=== PATIENT | male | born 1995 | race Caucasian/White ===

== ENCOUNTER 2023-01-08 09:03 | Outpatient (AMB) | payer BC, SELFPAY ==
--- NOTE | 2023-01-08 09:05 | A.OFFPC_ITS ---
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 Required: No Accompanied by: Self / Same As Patient Allergies amoxicillin Allergy (Severe, Verified 01/08/23 09:33) Unknown sulfamethoxazole [From Bactrim] Allergy (Severe, Verified 01/08/23 09:33) Unknown trimethoprim [From Bactrim] Allergy (Severe, Verified 01/08/23 09:33) Unknown Medication List - Last Reconciled 01/08/23 by Darshan Ryder CNP aspirin 81 mg PO DAILY enalapril maleate 7.5 mg PO BID Tobacco use date assessed: 01/08/23 Dental Screening Dental Screen Date: 01/08/23 Did you have a dental visit in the last 12 months?: Yes Did you have a dental problem in the last 6 months where you did not have access to dental care?: No Was dental information given to patient?: Patient has dentist HPI HPI Comments History of Present Illness Details 27-year-old male presents to establish c are. He notes that the last time he was evaluated by his former PCP, Galina Cuba, 3 years ago. He states the last time he had blood work was 2-3 year ago by his inventory specialist manager at [facility]. He follows his inventory specialist manager annually. He has past medical history significant for hypoplastic left heart syndrome. He is for enalapril and aspirin which he notes he takes for blood pressure regulation. He denies diagnosis of hypertension. He offers no complaints and denies acute symptoms at this time. He notes that he has been smoking 10 cigarettes daily for the past 3 years. He states that he drinks alcohol occasionally. He states he frequently consume marijuana gummies and occasionally smokes marijuana. He notes that he is not sexually active and has no concerns for STD. 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 1. Little interest or pleasure in doing things: not at all 2. Feeling down, depressed, or hopeless: not at all 3. Trouble falling or staying asleep, or sleeping too much: not at all 4. Feeling tired or having little energy: not at all 5. Poor appetite or overeating: not at all 6. Feeling bad about yourself - or that you are a failure or have let yourself or your family down: not at all 7. Trouble concentrating on things, such as reading the newspaper or watching television: not at all 8. Moving or speaking so slowly that other people could have noticed. Or the opposite - being so fidgety or restless that you have been moving around a lot more than usual: several days 9. Thoughts that you would be better off or of hurting yourself in some way: not at all Total score: 1 Depression Screening Interpretation: Negative Depression Screening Done: Yes 88643 - PHQ-9 Billing: Yes Source: Developed by Drs. Emil Guillen, Aida Spears, Adolph Waldrop and colleagues, with an educational lou from [email or web address]. Thrive Questionnaire Date Thrive assessed: 01/08/23 I am a: Patient What is your living situation today?: I have a steady place to live Within the past 12 months, did the food you bought not last and you didn't have the money to get more?: Never true Within the past 12 months, did you worry whether your food would run out before you got money to buy more?: Never true Do you have trouble paying for medicines?: No Do you have trouble getting transportation to medical appointments?: No Do you have trouble paying your heating and electricity bill?: No Do you have trouble taking care of your child, family member or friend?: No Do you have trouble with day-to-day activities such as bathing, preparing meals, shopping, managing finances, etc.?: No Are you currently unemployed and looking for a job?: No Are you interested in more education?: No Please select the resources that you would like help with: None Currently or been in a relationship where the following occur: no concerns reported AUDIT C Alcohol Use Questionnaire (AUDIT-C) 1. How often do you have a drink containing alcohol?: Never 3. How often do you have six or more drinks on one occasion?: Never Total Score: 0 PING-7 AMB Questionnaire PING-7 Date PING - 7 assessed: 01/08/23 Feeling nervous, anxious, or on edge: 0 = Not at all Not being able to stop or control worryin = Not at all Worrying too much about different things: 0 = Not at all Trouble relaxin = Not at all Being so restless that it is hard to sit still: 0 = Not at all Becoming easily annoyed or irritable: 0 = Not at all Feeling afraid as if something awful might happen: 0 = Not at all Total PING-7 score (0-4 normal; 5-9 mild; 10-14 moderate; 15-21 severe): 0 Source: Developed by Drs. Emil Guillen, Aida Spears, Adolph Waldrop and colleagues, with an educational lou from [email or web address]. PING-7 Assessment Billing PING-7 Assessment Tool: PING-7 Assessment 33303 Review of Systems Const Details: Denies chills, Denies fatigue, Denies fever(s), Denies headache(s) and Denies weakness HEENT Denies change in vision, Denies dizziness, Denies headache(s), Denies hearing loss, Denies nasal congestion, Denies sinus pain, Denies sinus pressure and Denies sore throat Card Denies chest pain, Denies lightheadedness, Denies dyspnea and Denies other (palpitations) Resp Denies cough, Denies dyspnea and Denies wheezing GI Denies abdominal pain, Denies melena, Denies hematochezia, Denies change in bowel habits, Denies dyspepsia and Denies nausea Denies hematuria and Denies dysuria Musc Denies abnormal gait, Denies myalgias, Denies arthralgias, Denies numbness and Denies tingling Skin/Breast Denies rash, Denies unusual bruising and Denies wounds Neuro Denies abnormal gait, Denies dizziness, Denies headache(s), Denies memory loss, Denies numbness, Denies Sensory deficit (Neuro), Denies tingling and Denies weakness Psych Denies anxiety, Denies depression and Denies memory loss Endo Denies cold intolerance, Denies fatigue, Denies heat intolerance, Denies polydipsia and Denies polyuria Peterson/Lymph Denies easy bleeding and Denies easy bruising Aller/Immun Denies wheezing Physical exam (Primary Care) Vital Signs: Last Vital Signs Temp 98.9 F 01/08/23 09:06 Pulse 88 01/08/23 09:06 Resp 14 01/08/23 09:06 BP 120/58 L 01/08/23 09:06 Pulse Ox 96 01/08/23 09:06 Oxygen Delivery Method Room Air 01/08/23 09:06 BMI result Body Mass Index 27.2 Tobacco/Smoking Status: Tobacco use Status Tobacco use date assessed 01/08/23 01/08/23 09:21 Patient Tobacco Use Status Current everyday Tobacco 01/08/23 09:21 e-Cigarette/Vaping Use Former Use 01/08/23 09:21 PHQ-9: PHQ-9 Score PHQ-9: Total score 1 01/08/23 09:33 Depression Screening Interpretation: Negative Thrive Assessment: Date of Thrive Assessment Date Thrive assessed 01/08/23 01/08/23 09:33 Currently or been in a relationship where the following occur: no concerns reported Const Other: General: no acute distress, well developed, alert and awake Nutritional Appearance: well nourished Orientation/consciousness: patient oriented x3 HENMT Head: Yes normocephalic and Yes atraumatic Ears: hearing grossly normal bilaterally and TM's normal bilaterally General nose exam: Normal external nose present and Normal nares present Mouth: Normal oral and palatal mucosa present and moist mucous membranes Teeth and gingiva: dentition normal Throat: Yes oropharynx normal Eyes Pupils: Equal, round and reactive pupils present and Pupil accommodation reflex normal EOM: EOMs intact bilaterally Neck Neck: Yes normal visual inspection, Yes no lymphadenopathy and Yes trachea midline Thyroid: Thyroid normal Carotids: no bruits Lymphatic: no lymphadenopathy noted Chest Chest palpation & inspection: normal inspection of the chest Resp Effort & Inspection: normal respiratory effort Auscultation: clear to auscultation bilaterally Cardio Rate: regular rate Rhythm: regular rhythm Heart sounds: S1 normal heart sound present, S2 normal heart sound present, no gallops, no murmurs and no rubs Bruits: no abdominal aortic bruits and no carotid bruits GI Palpation (GI): No Abdominal aortic bruit present, Soft to palpation, nontender, No hepatosplenomegaly present and No Rebound tenderness present Auscultation: normal bowel sounds General: Yes no CVA tenderness Back/Spine/Pelvis Back: no CVA tenderness Cervical Spine: cervical ROM normal and No Cervical spine tenderness Thoracic/Lumbar Spine: thoraco-lumbar ROM normal, No pain with thoraco-lumbar ROM, No thoracic spinal tenderness and No lumbar spinal tenderness Skin General: warm and dry. Normal skin color. Normal skin turgor Lesions: no lesions Rashes: no rashes Trauma: no lacerations or abrasions Wounds: no wounds Nails: normal Neuro General: patient oriented x3, gait normal and CN's II-XI intact bilaterally Cranial nerves: Yes Equal, round and reactive pupils present Cognition (Neuro): normal cognition Gait exam (Neuro): Normal gait present Motor exam (neuro): 5/5 motor strength present throughout Sensory Exam: No Sensory deficit (Neuro) Deep tendon reflexes (DTR's): Right patellar reflex intensity grade: 2+ and Left patellar reflex intensity grade: 2+ Extrem General: Yes normal to inspection, No edema and No calf tenderness Psych Appearance: grossly normal Affect: normal affect Attitude: cooperative Thought process: Normal thought process present Assessment and Plan Assessment & Plan (1) Normal physical examination, routine: Code(s): Z00.00 - Encounter for general adult medical examination without abnormal findings Plan: No significant physical restrictions or limitations noted Advised to get routine fasting blood work done and schedule a telehealth visit for labs review Return with symptoms or concerns Verbalized understanding and agreed with treatment plan (2) Hypoplastic left heart syndrome: Code(s): Q23.4 - Hypoplastic left heart syndrome Plan: He has past medical history significant for hypoplastic left heart syndrome. He is for enalapril and aspirin which he notes he takes for blood pressure regulation. He denies history of hypertension. Blood pressure is controlled, 120/58 Continue with current treatment regimen Low-sodium diet encouraged Follow-up with cardiology as planned Return with symptoms or concerns Verbalized understanding and agreed with treatment plan. (3) Smoking 1/2 pack a day or less: Code(s): F17.210 - Nicotine dependence, cigarettes, uncomplicated Plan: He notes that he has been smoking 10 cigarettes daily for the past 3 years Declines medication treatment for smoking cessation. He notes that he will gradually reduce her smoking and go cold turkey Instructed on the health risks and complications of smoking including heart attack and stroke Smoking cessation encouraged Advised to contact his PCP if he changes his mind on medication treatment for smoking cessation Verbalized understanding and agreed with treatment plan. (4) Laboratory tests ordered as part of a complete physical exam (CPE): Code(s): Z00.00 - Encounter for general adult medical examination without abnormal findings Plan: Fasting labs ordered as part of a complete physical exam. Advised to fast for at least 10 hours before getting labs drawn. May drink water Verbalized understanding and agreed with treatment plan. Orders: Orders Complete Blood Count no Diff Today Z00.00 - Encounter for general adult medical examination without abnormal findings TSH reflex Free T4 Today Z00.00 - Encounter for general adult medical examination without abnormal findings UA CC w/rflx Micro + Cult Today Z00.00 - Encounter for general adult medical examination without abnormal findings Complete Blood Count Auto Diff Today Z00.00 - Encounter for general adult medical examination without abnormal findings Lipid Panel Today Z00.00 - Encounter for general adult medical examination without abnormal findings Coding Level of Care Code Est Pt Prev Care [id number]) Diagnoses Normal physical examination, routine Z00.00 Hypoplastic left heart syndrome Q23.4 Smoking 1/2 pack a day or less F17.210 Laboratory tests ordered as part of a complete physical exam (CPE) Z00.00 Additional Codes PING-7 Assessment Billing - PING-7 Assessment Tool: PING-7 Assessment [id number] ([id number])
[2023-01-08 09:06] VITALS: BP 120/58; PULSE 88; RESP 14; TEMP 37.2; O2SAT 96; BMI 27.2
== END 2023-01-08 09:55 | disposition home or self-care (01) ==
PROVIDERS: PCP Nurse Practitioner Family; Visit Provider Nurse Practitioner Family
DX: Z00.00 Encounter for general adult medical examination without abnormal findings (principal); Q23.4 Hypoplastic left heart syndrome; F17.210 Nicotine dependence, cigarettes, uncomplicated
CPT/HCPCS: 99395

== ENCOUNTER 2023-01-08 09:55 | Outpatient (REF) | payer BC, SELFPAY ==
[2023-01-08 11:13] LABS: MANUAL DIFF FLAG NO
[2023-01-08 12:11] LABS: Cholesterol 116 mg/dL (<200); HDL Cholesterol 43 mg/dL (>40); LDL Cholesterol Calculated 61 mg/dL (<100); Triglycerides 62 mg/dL (<150)
[2023-01-08 12:16] LABS: Basophils Percent Auto 0.6 % (0-2); Eosinophils Absolute Auto 0.2 X10*3/uL (0.0-0.4); Eosinophils Percent Auto 3.3 % (0-4); Hematocrit 48.8 % (42.0-52.0); Hemoglobin 16.7 g/dl (14.0-18.0); Imm Gran Abs Auto 0.02 X10*3/uL (0.00-0.03); Imm Gran Pct Auto 0.4 % (0.0-0.4); Lymphocytes Absolute Auto 0.4 X10*3/uL (1.2-4.9); Lymphocytes Percent Auto 7.4 % (20-40); Mean Corpuscular HGB Conc 34.2 g/dl (31.0-36.0); Mean Corpuscular Volume 90.5 fL (80.0-98.0); Mean Platelet Volume 12.6 fL (9.4-12.4); Monocytes Percent Auto 19.6 % (2-11); Neutrophils Absolute Auto 3.3 x10*3/uL (2.0-8.3); Neutrophils Percent Auto 68.7 % (45-73); Platelet Count 203 X10*3/uL (160-400); Red Blood Count 5.39 X10*6/uL (4.60-5.80); Red Cell Distribution Width 13.1 % (11.0-16.0); White Blood Count 4.9 X10*3/uL (4.8-10.8)
[2023-01-08 12:21] LABS: TSH reflex Free T4 4.17 uIU/mL (0.32-4.0)
== END 2023-01-08 09:56 | disposition home or self-care (01) ==
LOC: HO.WFDLDS 09:55
PROVIDERS: Visit Provider Nurse Practitioner Family
DX: Z00.00 Encounter for general adult medical examination without abnormal findings (principal)
CPT/HCPCS: 36415; 80061; 84439; 84443; 85025; 85027

== ENCOUNTER 2023-02-02 10:02 | Outpatient (REF) | payer BC, SELFPAY ==
[2023-02-02 12:21] LABS: Alanine Aminotransferase 21 U/L (0-40); Alkaline Phosphatase 71 U/L (39-117); Anion Gap 12 (12-20); Aspartate Amino Transferase 24 U/L (5-37); Bilirubin Total 1.4 mg/dL (0.0-1.0); Blood Urea Nitrogen 11 mg/dL (9-16); Calcium 9.1 mg/dL (8.4-10.2); Carbon Dioxide 26 mmol/L (22-29); Chloride 108 mmol/L (96-108); Estimated Glomerular Filt Rate > 60; Glucose Fasting 80 mg/dL (60-99); Potassium 3.9 mmol/L (3.3-5.1); Sodium 142 mmol/L (135-145); Total Protein 6.3 g/dL (6.5-8.0)
== END 2023-02-02 10:03 | disposition home or self-care (01) ==
LOC: HO.WFDLDS 10:02
PROVIDERS: Visit Provider Nurse Practitioner Family
DX: Z00.00 Encounter for general adult medical examination without abnormal findings (principal); R94.6 Abnormal results of thyroid function studies
CPT/HCPCS: 36415; 80053; 84443

== ENCOUNTER 2024-01-14 07:54 | Outpatient (AMB) | payer BC, SELFPAY ==
--- NOTE | 2024-01-14 08:01 | A.OFFPC_ITS ---
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 Required: No Allergies amoxicillin Allergy (Severe, Verified 01/14/24 08:18) Unknown sulfamethoxazole [From Bactrim] Allergy (Severe, Verified 01/14/24 08:18) Unknown trimethoprim [From Bactrim] Allergy (Severe, Verified 01/14/24 08:18) Unknown Medication List - Last Reconciled 01/14/24 by Darshan Ryder CNP aspirin 81 mg PO DAILY enalapril maleate 7.5 mg PO BID Tobacco use date assessed: 01/14/24 Dental Screening Dental Screen Date: 01/14/24 Did you have a dental visit in the last 12 months?: Yes Did you have a dental problem in the last 6 months where you did not have access to dental care?: No Was dental information given to patient?: Patient has dentist HPI HPI Comments History of Present Illness Details 28-year-old male presents for an extende d physical exam He has past medical history significant for hypoplastic left heart syndrome. He notes that he is on enalapril and aspirin for blood pressure regulation. He denies history of hypertension Admits to making healthy lifestyle changes. He generally sleeps well He offers no complaints and denies acute symptoms at this time He smokes half a pack of cigarettes daily, and has been smoking for the past 4 years. He drinks 1-2 beers 3-4 times yearly. He smokes or use sublingual cannabis oil, approximately 1 oz monthly Last eye exam about 2 years ago. He will sign a consent for his PCP to obtain records Last tetanus vaccine was in 10/08/2016 He has not been vaccinated for the flu this season and requests the vaccine He is followed by [facility]. 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 1. Little interest or pleasure in doing things: not at all 2. Feeling down, depressed, or hopeless: not at all 3. Trouble falling or staying asleep, or sleeping too much: not at all 4. Feeling tired or having little energy: not at all 5. Poor appetite or overeating: not at all 6. Feeling bad about yourself - or that you are a failure or have let yourself or your family down: not at all 7. Trouble concentrating on things, such as reading the newspaper or watching television: not at all 8. Moving or speaking so slowly that other people could have noticed. Or the opposite - being so fidgety or restless that you have been moving around a lot more than usual: not at all 9. Thoughts that you would be better off or of hurting yourself in some way: not at all Total score: 0 Depression Screening Interpretation: Negative Depression Screening Done: Yes 63326 - PHQ-9 Billing: Yes Source: Developed by Drs. Emil Guillen, Aida Spears, Adolph Waldrop and colleagues, with an educational lou from [employer]. Thrive Questionnaire Date Thrive assessed: 01/14/24 I am a: Patient What is your living situation today?: I have a steady place to live Within the past 12 months, did the food you bought not last and you didn't have the money to get more?: Never true Within the past 12 months, did you worry whether your food would run out before you got money to buy more?: Never true Do you have trouble paying for medicines?: No Do you have trouble getting transportation to medical appointments?: No Do you have trouble paying your heating and electricity bill?: No Do you have trouble taking care of your child, family member or friend?: No Do you have trouble with day-to-day activities such as bathing, preparing meals, shopping, managing finances, etc.?: No Are you currently unemployed and looking for a job?: No Are you interested in more education?: No Please select the resources that you would like help with: None Currently or been in a relationship where the following occur: No concerns reported THRIVE Score: 0 AUDIT C Alcohol Use Questionnaire (AUDIT-C) 1. How often do you have a drink containing alcohol?: Monthly or less 2. How many drinks containing alcohol do you have on a typical day when you are drinking?: 1 or 2 3. How often do you have six or more drinks on one occasion?: Never Total Score: 1 PING-7 AMB Questionnaire PING-7 Date PING - 7 assessed: 01/14/24 Feeling nervous, anxious, or on edge: 0 = Not at all Not being able to stop or control worryin = Not at all Worrying too much about different things: 0 = Not at all Trouble relaxin = Not at all Being so restless that it is hard to sit still: 0 = Not at all Becoming easily annoyed or irritable: 0 = Not at all Feeling afraid as if something awful might happen: 0 = Not at all Total PING-7 score (0-4 normal; 5-9 mild; 10-14 moderate; 15-21 severe): 0 Source: Developed by Drs. Emil Guillen, Aida Spears, Adolph Waldrop and colleagues, with an educational lou from [employer]. PING-7 Assessment Billing PING-7 Assessment Tool: PING-7 Assessment 43825 Review of Systems Const Details: Denies chills, Denies fatigue, Denies fever(s), Denies headache(s) and Denies weakness HEENT Denies change in vision, Denies dizziness, Denies headache(s), Denies hearing loss, Denies nasal congestion, Denies sinus pain, Denies sinus pressure and Denies sore throat Card Denies chest pain, Denies lightheadedness, Denies dyspnea and Denies other (palpitations) Resp Denies cough, Denies dyspnea and Denies wheezing GI Denies abdominal pain, Denies melena, Denies hematochezia, Denies change in bowel habits, Denies dyspepsia and Denies nausea Denies hematuria and Denies dysuria Musc Denies abnormal gait, Denies myalgias, Denies arthralgias, Denies numbness and Denies tingling Skin/Breast Denies rash, Denies unusual bruising and Denies wounds Neuro Denies abnormal gait, Denies dizziness, Denies headache(s), Denies memory loss, Denies numbness, Denies Sensory deficit (Neuro), Denies tingling and Denies weakness Psych Denies anxiety, Denies depression and Denies memory loss Endo Denies cold intolerance, Denies fatigue, Denies heat intolerance, Denies polydipsia and Denies polyuria Peterson/Lymph Denies easy bleeding and Denies easy bruising Aller/Immun Denies wheezing Physical exam (Primary Care) Vital Signs: Last Vital Signs Temp 97.7 F 01/14/24 08:06 Pulse 73 01/14/24 08:06 Resp 16 01/14/24 08:06 BP 100/58 L 01/14/24 08:06 Pulse Ox 93 01/14/24 08:06 Oxygen Delivery Method Room Air 01/14/24 08:06 BMI result Body Mass Index 25.9 Tobacco/Smoking Status: Tobacco use Status Tobacco use date assessed 01/14/24 01/14/24 08:06 Patient Tobacco Use Status Current everyday Tobacco 01/14/24 08:03 Tobacco use type Cigarette 01/14/24 08:21 e-Cigarette/Vaping Use Former Use 01/14/24 08:03 PHQ-9: PHQ-9 Score PHQ-9: Total score 0 01/14/24 08:44 Depression Screening Interpretation: Negative Thrive Assessment: Date of Thrive Assessment Date Thrive assessed 01/14/24 01/14/24 08:06 Currently or been in a relationship where the following occur: No concerns reported Const Other: General: no acute distress, well developed, alert and awake Nutritional Appearance: well nourished Orientation/consciousness: patient oriented x3 HENMT Head: Yes normocephalic and Yes atraumatic Ears: hearing grossly normal bilaterally and TM's normal bilaterally General nose exam: Normal external nose present and Normal nares present Mouth: Normal oral and palatal mucosa present and moist mucous membranes Teeth and gingiva: dentition normal Throat: Yes oropharynx normal Eyes Pupils: Equal, round and reactive pupils present and Pupil accommodation reflex normal EOM: EOMs intact bilaterally Neck Neck: Yes normal visual inspection, Yes no lymphadenopathy and Yes trachea midline Thyroid: Thyroid normal Carotids: no bruits Lymphatic: no lymphadenopathy noted Chest Chest palpation & inspection: normal inspection of the chest Resp Effort & Inspection: normal respiratory effort Auscultation: clear to auscultation bilaterally Cardio Rate: regular rate Rhythm: regular rhythm Heart sounds: S1 normal heart sound present, S2 normal heart sound present, no gallops, no murmurs and no rubs Bruits: no abdominal aortic bruits and no carotid bruits GI Palpation (GI): No Abdominal aortic bruit present, Soft to palpation, nontender, No hepatosplenomegaly present and No Rebound tenderness present Auscultation: normal bowel sounds General: Yes no CVA tenderness Back/Spine/Pelvis Back: no CVA tenderness Cervical Spine: cervical ROM normal and No Cervical spine tenderness Thoracic/Lumbar Spine: thoraco-lumbar ROM normal, No pain with thoraco-lumbar ROM, No thoracic spinal tenderness and No lumbar spinal tenderness Skin General: warm and dry. Normal skin color. Normal skin turgor Lesions: no lesions Rashes: no rashes Trauma: no lacerations or abrasions Wounds: no wounds Nails: normal Neuro General: patient oriented x3, gait normal and CN's II-XI intact bilaterally Cranial nerves: Yes Equal, round and reactive pupils present Cognition (Neuro): normal cognition Gait exam (Neuro): Normal gait present Motor exam (neuro): 5/5 motor strength present throughout Sensory Exam: No Sensory deficit (Neuro) Deep tendon reflexes (DTR's): Right patellar reflex intensity grade: 2+ and Left patellar reflex intensity grade: 2+ Extrem General: Yes normal to inspection, No edema and No calf tenderness Psych Appearance: grossly normal Affect: normal affect Attitude: cooperative Thought process: Normal thought process present Office Procedures Flu Questionnaire Does the patient have a severe egg allergy?: No Does the patient have severe life threatening allergies?: No Does the patient have a fever or illness today?: No Has the patient ever had Guillain-[place] Syndrome?: No Has the patient ever had any past reaction to a flu shot?: No Immunizations Fluarix Triv [id number] (PF) 45 mcg (15 mcg x 3)/0.5 mL IM syringe Performing Provider: Darshan Ryder CNP Performing Location: [facility] Administered by: Caro Cao RN on 01/14/24 08:51 Dose Route Admin Location Dispensed Lot Number Expiration Date NDC Director Acute 0.5 mL IM Right Deltoid 0.5 mL [id number] 08/29/24 [id number] Unight VIS Given Date VIS Provided VIS Publication Date 01/14/24 Single Vaccine 20 Eligibility Eligibility Date Funding Source Not [facility] Eligible 01/14/24 Private Coding Level of Care Code Est Pt Prev Care 18-39y(88737) Diagnoses Normal physical examination, routine Z00.00 Eye exam, routine Z01.00 Smoking 1/2 pack a day or less F17.210 Hypoplastic left heart syndrome Q23.4 Flu vaccine need Z23 Laboratory tests ordered as part of a complete physical exam (CPE) Z00.00 Additional Codes PING-7 Assessment Billing - PING-7 Assessment Tool: PING-7 Assessment 23492 ([id number]) PHQ-9 - 36433 - PHQ-9 Billing: Yes ([id number]) Assessment & Plan Assessment & Plan (1) Normal physical examination, routine: Code(s): Z00.00 - Encounter for general adult medical examination without abnormal findings Category: Medical Plan: No significant functional limitations noted Continue current treatment regimen Healthy diet and routine exercise encouraged Advised to get lab work done and follow-up for telehealth visit in 2-3 weeks for labs review Return sooner with symptoms or concerns Verbalized understanding and agreed with the treatment plan (2) Eye exam, routine: Code(s): Z01.00 - Encounter for examination of eyes and vision without abnormal findings Category: Medical Plan: Last eye exam about 2 years ago Encouraged to call and schedule an appointment for routine eye exam He will sign a consent for his PCP to obtain records Verbalized understanding and agreed with the plan (3) Smoking 1/2 pack a day or less: Code(s): F17.210 - Nicotine dependence, cigarettes, uncomplicated Category: Social Hx Plan: He smokes half a pack of cigarettes daily, and has been smoking for the past 4 years Instructed on the health risks and complications of cigarette smoking. Smoking cessation encouraged He declines medication treatment for smoking cessation Advised to inform his PCP as needed for medication treatment for smoking cessation Verbalized understanding and agreed with the plan (4) Hypoplastic left heart syndrome: Code(s): Q23.4 - Hypoplastic left heart syndrome Category: Medical Plan: He is aspirin and enalapril and followed by [facility] (5) Flu vaccine need: Code(s): Z23 - Encounter for immunization Category: Medical Plan: He has not been vaccinated for the flu this season Flu vaccine administered by our nurse today (6) Laboratory tests ordered as part of a complete physical exam (CPE): Code(s): Z00.00 - Encounter for general adult medical examination without abnormal findings Category: Medical Plan: Fasting labs ordered as part of a complete physical exam. Advised to fast for at least 10 hours before getting labs drawn. May drink water Verbalized understanding and agreed with treatment plan. Orders: Orders Complete Blood Count Auto Diff Today Z00.00 - Encounter for general adult medical examination without abnormal findings UA CC w/rflx Micro + Cult Today Z00.00 - Encounter for general adult medical examination without abnormal findings Comprehensive [place]. Panel Fast Today Z00.00 - Encounter for general adult medical examination without abnormal findings Lipid Panel Today Z00.00 - Encounter for general adult medical examination without abnormal findings TSH reflex Free T4 Today Z00.00 - Encounter for general adult medical examination without abnormal findings Influenza [id number] Immunization Today Z23 - Encounter for immunization Medications: New Fluarix Triv [id number] (PF) (flu vacc [id number] 6mos up(PF)) 0.5 mL IM ONCE 0.5 mL 0RF NS Z23 - Encounter for immunization
[2024-01-14 08:06] VITALS: BP 100/58; PULSE 73; RESP 16; TEMP 36.5; O2SAT 93; BMI 25.9
== END 2024-01-14 08:45 | disposition home or self-care (01) ==
PROVIDERS: PCP Nurse Practitioner Family; Visit Provider Nurse Practitioner Family
DX: Z00.00 Encounter for general adult medical examination without abnormal findings (principal); F17.210 Nicotine dependence, cigarettes, uncomplicated; Q23.4 Hypoplastic left heart syndrome

== ENCOUNTER → 2024-01-14 07:54 | Outpatient (BNVA) | payer BC, SELFPAY | PROVIDERS: PCP Nurse Practitioner Family; Visit Provider Nurse Practitioner Family | DX: Z00.00 Encounter for general adult medical examination without abnormal findings (principal); Z23 Encounter for immunization; F17.210 Nicotine dependence, cigarettes, uncomplicated; Q23.4 Hypoplastic left heart syndrome; Z79.82 Long term (current) use of aspirin; Z79.899 Other long term (current) drug therapy | CPT/HCPCS: 90471; 90656; 96127 ==

== ENCOUNTER 2024-01-14 09:06 | Outpatient (REF) | payer BC, SELFPAY ==
[2024-01-14 11:02] LABS: MANUAL DIFF FLAG NO
[2024-01-14 11:18] LABS: Basophils Absolute Auto 0.1 X10*3/uL (0.0-0.2); Eosinophils Absolute Auto 0.5 X10*3/uL (0.0-0.4); Eosinophils Percent Auto 9.3 % (0-4); Hematocrit 50.1 % (42.0-52.0); Hemoglobin 16.7 g/dl (14.0-18.0); Imm Gran Abs Auto 0.02 X10*3/uL (0.00-0.03); Imm Gran Pct Auto 0.4 % (0.0-0.4); Lymphocytes Absolute Auto 0.5 X10*3/uL (1.2-4.9); Lymphocytes Percent Auto 8.9 % (20-40); Mean Corpuscular HGB Conc 33.3 g/dl (31.0-36.0); Mean Corpuscular Hemoglobin 31.4 pg (27.0-33.0); Mean Corpuscular Volume 94.2 fL (80.0-98.0); Mean Platelet Volume 11.5 fL (9.4-12.4); Monocytes Absolute Auto 0.6 X10*3/uL (0.1-1.2); Monocytes Percent Auto 10.6 % (2-11); Neutrophils Absolute Auto 3.7 x10*3/uL (2.0-8.3); Neutrophils Percent Auto 69.8 % (45-73); Platelet Count 225 X10*3/uL (160-400); Red Blood Count 5.32 X10*6/uL (4.60-5.80); Red Cell Distribution Width 12.6 % (11.0-16.0); White Blood Count 5.3 X10*3/uL (4.8-10.8)
[2024-01-14 11:48] LABS: Alanine Aminotransferase 20 U/L (0-40); Albumin Level 3.2 g/dL (3.5-5.0); Alkaline Phosphatase 64 U/L (39-117); Anion Gap 8 (12-20); Aspartate Amino Transferase 31 U/L (5-37); Blood Urea Nitrogen 16 mg/dL (9-16); Carbon Dioxide 29 mmol/L (22-29); Chloride 106 mmol/L (96-108); Cholesterol 138 mg/dL (<200); Estimated Glomerular Filt Rate > 60; Glucose Fasting 74 mg/dL (60-99); HDL Cholesterol 52 mg/dL (>40); LDL Cholesterol Calculated 72 mg/dL (<100); Potassium 3.6 mmol/L (3.3-5.1); Sodium 139 mmol/L (135-145); Total Protein 5.1 g/dL (6.5-8.0); Triglycerides 71 mg/dL (<150)
[2024-01-14 11:53] LABS: Appearance Urine Clear; Color Urine Dark Yellow; Glucose Urine UA Negative (Negative); Leukocyte Esterase Urine Negative (Negative); Nitrite Urine Negative (Negative); PH 5.5 (5.0-9.0); Specific Gravity - Urine 1.025 (1.005-1.025); Urine Blood Negative (Negative); Urine Ketones Trace mg/dL (Negative); Urine Protein Negative (Neg-Trace)
[2024-01-14 11:57] LABS: TSH reflex Free T4 4.89 uIU/mL (0.32-4.0)
[2024-01-14 13:16] LABS: Free T4 (Free Thyroxine) 1.07 ng/dL (0.71-1.85)
== END 2024-01-14 09:07 | disposition home or self-care (01) ==
LOC: HO.WFDLDS 09:06
PROVIDERS: Visit Provider Nurse Practitioner Family
DX: Z00.00 Encounter for general adult medical examination without abnormal findings (principal)
CPT/HCPCS: 36415; 80053; 80061; 81003; 84439; 84443; 85025

== ENCOUNTER 2024-02-03 15:33 | Outpatient (AMB) | payer BC, SELFPAY ==
--- NOTE | 2024-02-03 15:29 | A.OFFPC_ITS ---
Intake Visit Reasons: Fu labs Intake Note: patient here for follow up telehealth for med review Change Management Analyst Required: No Allergies amoxicillin Allergy (Severe, Verified 02/03/24 15:30) Unknown sulfamethoxazole [From Bactrim] Allergy (Severe, Verified 02/03/24 15:30) Unknown trimethoprim [From Bactrim] Allergy (Severe, Verified 02/03/24 15:30) Unknown Tobacco use date assessed: 01/14/24 Dental Screening Dental Screen Date: 01/14/24 HPI HPI Comments History of Present Illness Details Telemedicine visit. The patient is a 28-year-old male presenting for a review of recent laboratory results which demonstrate abnormalities including hypocalcemia, hypoalbuminemia, and possible subclinical hypothyroidism. The patient reported a history of vitamin D deficiency two years prior, for which he was on supplementation. He ceased supplement intake when previous tests showed normal levels. The patient's recent comprehensive metabolic panel (CMP) indicated a low calcium level at 8.0 mg/dL, with the normal range being 8.4 to 10.2 mg/dL. Concurrent evaluation indicates normal renal function, negating kidney disease as a cause for the hypocalcemia. The patient is made aware that causes for low calcium could relate to vitamin D deficiency, low parathyroid hormone levels, or magnesium deficiency. The total protein and albumin levels from the labs were also slightly below the normal (total protein at 5.1 g/dL and albumin at 3.2 g/dL), despite the patient adhering to a protein-rich diet of over 100 grams daily, predominantly from sources like yogurt, oatmeal, and chicken. The thyroid-stimulating hormone (TSH) was elevated at 4.89 ?IU/mL, with normal ranges being 0.32 to 4.0 ?IU/mL. A prior result in December 2022 had shown TSH at 4.17 ?IU/mL; however, the patient did not report related symptoms such as fatigue or weakness and maintains an active lifestyle, suggesting a subclinical state. 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 Emil Guillen, Aida Spears, Adolph Waldrop and colleagues, with an educational lou from [employer]. Review of Systems Const Details: Const Denies chills, Denies fatigue, Denies fever(s), Denies headache(s) and Denies weakness ENT Denies dizziness and Denies headache(s) Card Denies chest pain, Denies lightheadedness, Denies dyspnea and Denies other (Palpitations) Resp Denies cough, Denies dyspnea, Denies wheezing and Denies other ( shortness of breath) GI Denies abdominal pain, Denies melena, Denies hematochezia, Denies change in bowel habits, Denies dyspepsia and Denies nausea Denies hematuria and Denies dysuria Musc Denies abnormal gait, Denies myalgias, Denies arthralgias, Denies numbness and Denies tingling Skin/Breast Denies rash, Denies unusual bruising and Denies wounds Neuro Denies abnormal gait, Denies dizziness, Denies headache(s), Denies memory loss, Denies numbness, Denies Sensory deficit (Neuro), Denies tingling and Denies weakness Psych Denies anxiety, Denies depression, Denies memory loss Endo Denies cold intolerance, Denies fatigue, Denies heat intolerance, Denies polydipsia and Denies polyuria Aller/Immun Denies wheezing Physical exam (Primary Care) Tobacco/Smoking Status: Tobacco use Status Tobacco use date assessed 01/14/24 02/03/24 15:32 Patient Tobacco Use Status Current everyday Tobacco 02/03/24 15:32 Tobacco use type Cigarette 02/03/24 15:32 e-Cigarette/Vaping Use Former Use 02/03/24 15:32 Thrive Assessment: Date of Thrive Assessment Date Thrive assessed 01/14/24 02/03/24 15:32 Const Other: Telehealth visit. No physical exam. Telehealth Telehealth Telehealth Platform: Telephone Location of provider rendering services: practice address Location of patient: address on file Patient Identification confirmed using: Name, : Yes Telehealth method: voice only Patient verbally consented to treatment: Yes Patient verbally consented to billing insurance company: Yes Patient informed of any privacy concerns related to visit: Yes Coding Level of Care Code Tele Est Pt Level 3 (65808) Diagnoses Hypocalcemia E83.51 Hypoalbuminemia E88.09 Subclinical hypothyroidism E03.8 History of vitamin D deficiency Z86.39 Time Spent (min) 20 Assessment & Plan Assessment & Plan (1) Hypocalcemia: Code(s): E83.51 - Hypocalcemia Category: Medical Plan: Assess vitamin D levels, parathyroid hormone, and magnesium to determine potential causes. (2) Hypoalbuminemia: Code(s): E88.09 - Other disorders of plasma-protein metabolism, not elsewhere classified Category: Medical Plan: Monitor nutritional intake; reassess protein levels during repeat laboratory investigations to rule out possible lab error. (3) Subclinical hypothyroidism: Code(s): E03.8 - Other specified hypothyroidism Category: Medical Plan: Monitor TSH levels with repeat testing to evaluate progression. (4) History of vitamin D deficiency: Code(s): Z86.39 - Personal history of other endocrine, nutritional and metabolic disease Category: Medical Plan: Re-evaluate vitamin D levels and consider reinitiation of supplementation based on results. Plan I discussed with the patient that while the TSH levels are slightly elevated, indicating subclinical hypothyroidism as symptoms are not present, there is no immediate need for treatment. It is essential to verify underlying causes of the low calcium level by assessing vitamin D, parathyroid hormone, and magnesium levels. Given the patient's nutritional history and present lab findings, a possible cause of protein and albumin levels being low might be due to lab error, which will be reconfirmed in follow-up testing. There was emphasis on the necessity of proper vitamin D intake during winter months in the [place] area due to reduced sunlight exposure. Regular monitoring and follow-up in two weeks are required after repeat labs. Orders: Orders PTH Intact Intraoperative Today E83.51 - Hypocalcemia Magnesium Today E83.51 - Hypocalcemia Albumin Level Today E88.09 - Other disorders of plasma-protein metabolism, not elsewhere classified Vitamin D 25-OH Total Today Z86.39 - Personal history of other endocrine, nutritional and metabolic disease TSH reflex Free T4 Today E03.8 - Other specified hypothyroidism Total Protein Today E88.09 - Other disorders of plasma-protein metabolism, not elsewhere classified Patient Instructions: - Undergo repeated lab tests for calcium, TSH, vitamin D, parathyroid hormone, and magnesium levels before the next follow-up appointment. - Maintain current protein-rich diet and vitamin D supplementation, particularly during months with limited sun exposure. - Await call for scheduling a follow-up appointment approximately two weeks post repeat lab completion. - Contact the healthcare provider sooner if new symptoms or concerns arise. Patient was informed and verbally consented to the use of an ambient scribe for clinic note documentation during this visit.
== END 2024-02-03 16:27 | disposition home or self-care (01) ==
LOC: HO.HMCFM 15:33
PROVIDERS: PCP Nurse Practitioner Family; Visit Provider Nurse Practitioner Family
DX: E83.51 Hypocalcemia (principal); E88.09 Other disorders of plasma-protein metabolism, not elsewhere classified; E03.8 Other specified hypothyroidism; Z86.39 Personal history of other endocrine, nutritional and metabolic disease

== ENCOUNTER 2024-02-26 15:59 | Outpatient (REF) | payer BC, SELFPAY ==
[2024-02-26 18:05] LABS: Albumin Level 3.1 g/dL (3.5-5.0); Magnesium 1.9 mg/dL (1.6-2.6); Parathyroid Hormone Intact 98.2 pg/mL (8.7-77.1); Total Protein 4.9 g/dL (6.5-8.0)
[2024-02-26 18:26] LABS: TSH reflex Free T4 2.32 uIU/mL (0.32-4.0); Vitamin D 25-OH Total 9.4 ng/mL (>30)
== END 2024-02-26 16:00 | disposition home or self-care (01) ==
LOC: HO.WFDLDS 15:59
PROVIDERS: Visit Provider Nurse Practitioner Family
DX: E83.51 Hypocalcemia (principal); E03.8 Other specified hypothyroidism; Z86.39 Personal history of other endocrine, nutritional and metabolic disease; E88.09 Other disorders of plasma-protein metabolism, not elsewhere classified
CPT/HCPCS: 36415; 82040; 82306; 83735; 83970; 84155; 84443

== ENCOUNTER 2024-03-10 15:54 | Outpatient (AMB) | payer BC, SELFPAY ==
--- NOTE | 2024-03-10 15:52 | MHC.PC.OV ---
Intake Visit Reasons: Blood test review Intake Note: patient here for a telehealth for lab review Database Architect Required: No Allergies amoxicillin Allergy (Severe, Verified 03/10/24 15:52) Unknown sulfamethoxazole [From Bactrim] Allergy (Severe, Verified 03/10/24 15:52) Unknown trimethoprim [From Bactrim] Allergy (Severe, Verified 03/10/24 15:52) Unknown Tobacco use date assessed: 03/10/24 Dental Screening Dental Screen Date: 03/10/24 Did you have a dental visit in the last 12 months?: Yes Did you have a dental problem in the last 6 months where you did not have access to dental care?: No Was dental information given to patient?: Patient has dentist HPI HPI Comments History of Present Illness Details 28-year-old male presents for telehealth visit for hypocalcemia, hypoalbuminemia, subclinical hypothyroidism, and vitamin-D deficiency. He admits to taking his medications as prescribed without adverse reactions. He offers no complaints and denies acute symptoms at this time. 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 Current occupational exposures/hazards: Yes Cognitive needs: No Hearing needs: No Vision needs: No Questionnaire Thrive Questionnaire Date Thrive assessed: 01/08/24 I am a: Patient What is your living situation today?: I have a steady place to live Within the past 12 months, did the food you bought not last and you didn't have the money to get more?: Never true Within the past 12 months, did you worry whether your food would run out before you got money to buy more?: Never true Do you have trouble paying for medicines?: No Do you have trouble getting transportation to medical appointments?: No Do you have trouble paying your heating and electricity bill?: No Do you have trouble taking care of your child, family member or friend?: No Do you have trouble with day-to-day activities such as bathing, preparing meals, shopping, managing finances, etc.?: No Are you currently unemployed and looking for a job?: No Are you interested in more education?: No Please select the resources that you would like help with: None Currently or been in a relationship where the following occur: No concerns reported THRIVE Score: 0 PING-7 AMB Questionnaire PING-7 Date PING - 7 assessed: 01/14/24 Source: Developed by Drs. Emil Guillen, Aida Spears, Adolph Waldrop and colleagues, with an educational lou from [employer]. Review of Systems Const Details: Denies chills, Denies fatigue, Denies fever(s), Denies headache(s) and Denies weakness Cardiac Denies chest pain, Denies claudication, Denies leg edema, Denies lightheadedness, Denies palpitations, Denies dyspnea, Denies dyspnea on exertion, Denies orthopnea and Denies other (Loss of consciousness) Resp Denies cough, Denies excessive phlegm production, Denies dyspnea, Denies dyspnea on exertion, Denies snoring and Denies wheezing Physical exam (Primary Care) Tobacco/Smoking Status: Tobacco use Status Tobacco use date assessed 03/10/24 03/10/24 15:55 Patient Tobacco Use Status Current everyday Tobacco 03/10/24 15:55 Tobacco use type Cigarette 03/10/24 15:55 e-Cigarette/Vaping Use Former Use 03/10/24 15:55 Thrive Assessment: Date of Thrive Assessment Date Thrive assessed 01/08/24 03/10/24 15:55 Currently or been in a relationship where the following occur: No concerns reported Const Other: Telehealth visit. No physical exam. Telehealth Telehealth Telehealth Platform: Telephone Location of provider rendering services: practice address Location of patient: address on file Patient Identification confirmed using: Name, : Yes Telehealth method: voice only Patient verbally consented to treatment: Yes Patient verbally consented to billing insurance company: Yes Patient informed of any privacy concerns related to visit: Yes Coding Level of Care Code Tele New Pt Level 3 (89463) Diagnoses Hypocalcemia E83.51 Hypoalbuminemia E88.09 Subclinical hypothyroidism E03.8 History of vitamin D deficiency Z86.39 Elevated PTHrP level R79.89 Time Spent (min) 15 Assessment & Plan Assessment & Plan (1) Hypocalcemia: Code(s): E83.51 - Hypocalcemia Category: Medical Plan: Recent magnesium level is normal; vitamin-D level is significantly low, 9.4 and likely contributing factor. Elevated PTH level may also be a contributing factor. Encouraged continue to take vitamin-D level as prescribed. Will recheck vitamin-D level and make changes as needed. Perform blood work before next visit. Follow-up in 6 weeks for telehealth visit or sooner with symptoms or concerns. Verbalized understanding and agreed with treatment plan. (2) Hypoalbuminemia: Code(s): E88.09 - Other disorders of plasma-protein metabolism, not elsewhere classified Category: Medical Plan: Recent to the protein is low, 4.9; previous level was also low, 5.1; albumin level is low, 3.1; previous level was also low, 3.2. Encouraged to consume foods that are rich in protein. Will recheck total protein level and make changes as needed. Verbalized understanding and agreed with treatment plan. (3) Subclinical hypothyroidism: Code(s): E03.8 - Other specified hypothyroidism Category: Medical Plan: TSH has normalized. Recent TSH level was 2.32. (4) History of vitamin D deficiency: Code(s): Z86.39 - Personal history of other endocrine, nutritional and metabolic disease Category: Medical Plan: Recent vitamin-D level is significant low, 9.4. He is currently on vitamin-D 3 1250 mcg every week; advised to take as prescribed. Will recheck vitamin-D level in 6 weeks and make changes as needed. Verbalized understanding and agreed with treatment. (5) Elevated PTHrP level: Code(s): R79.89 - Other specified abnormal findings of blood chemistry Category: Medical Plan: Recent PTH level is elevated, 98.2; likely due to hypocalcemia; may normalize once vitamin D level becomes normal. Will recheck PTH level in 6 weeks and make changes as needed. Orders: Orders Parathyroid Hormone Intact 6 Weeks R79.89 - Other specified abnormal findings of blood chemistry Vitamin D 25-OH Total 6 Weeks Z86.39 - Personal history of other endocrine, nutritional and metabolic disease Total Protein 6 Weeks E88.09 - Other disorders of plasma-protein metabolism, not elsewhere classified
== END 2024-03-10 16:31 | disposition home or self-care (01) ==
LOC: HO.HMCFM 15:54
PROVIDERS: PCP Nurse Practitioner Family; Visit Provider Nurse Practitioner Family
DX: E83.51 Hypocalcemia (principal); E88.09 Other disorders of plasma-protein metabolism, not elsewhere classified; E03.8 Other specified hypothyroidism; Z86.39 Personal history of other endocrine, nutritional and metabolic disease; R79.89 Other specified abnormal findings of blood chemistry

== ENCOUNTER → 2024-03-10 15:54 | Outpatient (BNVA) | payer BC, SELFPAY | PROVIDERS: PCP Nurse Practitioner Family; Visit Provider Nurse Practitioner Family ==

== ENCOUNTER 2024-04-08 12:41 | Outpatient (REF) | payer BC, SELFPAY ==
--- OUTSIDE RECORDS SUMMARY | 2024-04-08 13:22 | XMS_ITS | Continuity of Care Document ---
Author Organization [facility] Address [address] [place] [id number]- Care Team Providers Care Hand Crown Pouncer Name Role Phone Britin PRECIADO, Darshan Primary Care Physician Encounter [facility] Date(s): 02/25/24 - 03/26/24 [facility] [address] [place] [id number] Encounter Type: Triage Allergies, Adverse Reactions, Alerts Substance Criticality Severity Reaction Reaction Severity Status amoxicillin hives Active Bactrim hives Active sulfADIAZINE Hives Active Medications aspirin 81 mg oral tablet, chewable 81 mg, 1, tablet, By Mouth, Daily, 0 Refills Start Date: 12/02/05 Status: Ordered Repeat number: 1 azithromycin 500 mg oral tablet 1 tablet = 500 mg, By Mouth, Once, Take 1 tablet 1 hour prior to dental procedure, # 1 tablet, 0 Refills, Soft Stop, 09/06/20 12:42:00 PM EDT, [id number], Partial fill upon patient request if the prescription is for a schedule II opioid drug., 172.5, cm, 07/24/20 14:39:00 EDT, Height Start Date: 7/8/21 Status: Ordered Quantity: 1.0 Unit: tablet Repeat number: 1 Omeprazole By Mouth, Daily, 0 Refills, Maintenance, 01/12/15 11:37:02 AM EST Start Date: 01/12/15 Status: Ordered Repeat number: 1 Vasotec 5 mg oral tablet 1.5 tab, By Mouth, 2 times a day, # 270 tablet, Refills 1, Tot. Refills 1, Maintenance, 04/07/23 12:27:00 PM EST, Route to Pharmacy Electronically, [id number], 172.5, cm, 04/07/23 11:37:00 EST, Height Start Date: 04/07/23 Stop Date: 10/04/23 Status: Ordered Quantity: 270.0 Unit: tablet Repeat number: 2 Vitamin D3 400 intl units oral capsule See Instructions, 2 capsule By Mouth Daily, # 100 capsule, 11 Refills, Maintenance, 01/28/16 4:52:26 PM EST, [id number] Start Date: 01/28/16 Status: Ordered Quantity: 100.0 Unit: capsule Repeat number: 12 Problem List Condition Confirmation Course Effective Dates Status Health [facility] Informant 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 Obesity Confirmed Active Social History Social History Type Response Smoking Status Never smoker entered on: 01/18/16 Sex Sex Representation Male (finding) Patient Care team information Care Team Personnel Name: Rosa M Wolfe MD Position: [facility] Physician - Pediatrics Member Role: Lifetime Consulting Physician Name: Darshan Ryder NP Position: Reference Physician Member Role: PCP Address: [address] [place] [address] Telecom: Care Team Related Persons Name: HANANE FELIZ Name: RONNIE FINK Name: RONNIE FINK Insurance Providers Guarantor name: MOHIT FELIZ Health Plan Information #: 1 Payer: HMO [employer] Member Number: NA Policy Number: NA Group Number: NA Health Plan Information #: 2 Payer: [place] Member Number: NA Policy Number: NA Group Number: NA
[2024-04-08 15:03] LABS: Calcium 7.4 mg/dL (8.4-10.2); Total Protein 4.9 g/dL (6.5-8.0)
[2024-04-08 15:22] LABS: Parathyroid Hormone Intact 119.6 pg/mL (8.7-77.1)
== END 2024-04-08 12:42 | disposition home or self-care (01) ==
LOC: HO.WFDLDS 12:41
PROVIDERS: Visit Provider Nurse Practitioner Family
DX: E83.51 Hypocalcemia (principal); R79.89 Other specified abnormal findings of blood chemistry; Z86.39 Personal history of other endocrine, nutritional and metabolic disease; E88.09 Other disorders of plasma-protein metabolism, not elsewhere classified
CPT/HCPCS: 36415; 82306; 82310; 83970; 84155

== ENCOUNTER → 2024-04-12 12:14 | Outpatient (BNVA) | payer BC, SELFPAY | PROVIDERS: PCP Nurse Practitioner Family; Visit Provider Nurse Practitioner Family | DX: E83.51 Hypocalcemia (principal); E88.09 Other disorders of plasma-protein metabolism, not elsewhere classified; R79.89 Other specified abnormal findings of blood chemistry; Z86.39 Personal history of other endocrine, nutritional and metabolic disease | CPT/HCPCS: 96127 ==

== ENCOUNTER → 2024-04-12 13:40 | Outpatient (AMB) | payer BC, SELFPAY ==
--- NOTE | 2024-04-12 12:19 | MHC.PC.OV ---
Vital Signs 04/12/24 12:25 Height 5 ft 8 in Weight 177 lb 6 oz BMI 27.0 BP 108/54 L Blood Pressure Location Rt brachial Position Sitting Respiration 16 Pulse 89 Pulse Source Pulse Oximeter Temp 97.9 F Temp Source Oral Pulse Oximetry (%) 93 Oxygen Delivery Method Room Air Intake Visit Reasons: Med. Review Intake Note: patient here for med review Customer Supply Coordinator Required: No Allergies amoxicillin Allergy (Severe, Verified 04/12/24 12:23) Unknown sulfamethoxazole [From Bactrim] Allergy (Severe, Verified 04/12/24 12:23) Unknown trimethoprim [From Bactrim] Allergy (Severe, Verified 04/12/24 12:23) Unknown Tobacco use date assessed: 04/12/24 Dental Screening Dental Screen Date: 04/12/24 Did you have a dental visit in the last 12 months?: Yes Did you have a dental problem in the last 6 months where you did not have access to dental care?: No Was dental information given to patient?: Patient has dentist HPI HPI Comments History of Present Illness Details 28-year-old male presents for review of recent lab results. He has history of hypocalcemia, hypoalbuminemia, vitamin-D deficiency, and elevated PTH. He admits to taking his medications as prescribed without adverse reactions. He has 2 doses left for vitamin D3 1250 mcg. He has been maintaining a healthy diet, occluding protein and calcium rich foods. He offers no complaints and denies acute symptoms at this time. 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 1. Little interest or pleasure in doing things: not at all 2. Feeling down, depressed, or hopeless: not at all 3. Trouble falling or staying asleep, or sleeping too much: not at all 4. Feeling tired or having little energy: not at all 5. Poor appetite or overeating: not at all 6. Feeling bad about yourself - or that you are a failure or have let yourself or your family down: not at all 7. Trouble concentrating on things, such as reading the newspaper or watching television: not at all 8. Moving or speaking so slowly that other people could have noticed. Or the opposite - being so fidgety or restless that you have been moving around a lot more than usual: not at all 9. Thoughts that you would be better off or of hurting yourself in some way: not at all Total score: 0 Depression Screening Interpretation: Negative Depression Screening Done: Yes Source: Developed by Drs. Emil Guillen, Aida Spears, Adolph Waldrop and colleagues, with an educational lou from [employer] Thrive Questionnaire Date Thrive assessed: 04/12/24 I am a: Patient What is your living situation today?: I have a steady place to live Within the past 12 months, did the food you bought not last and you didn't have the money to get more?: Never true Within the past 12 months, did you worry whether your food would run out before you got money to buy more?: Never true Do you have trouble paying for medicines?: No Do you have trouble getting transportation to medical appointments?: No Do you have trouble paying your heating and electricity bill?: No Do you have trouble taking care of your child, family member or friend?: No Do you have trouble with day-to-day activities such as bathing, preparing meals, shopping, managing finances, etc.?: No Are you currently unemployed and looking for a job?: No Are you interested in more education?: No Please select the resources that you would like help with: None Currently or been in a relationship where the following occur: No concerns reported THRIVE Score: 0 AUDIT C Alcohol Use Questionnaire (AUDIT-C) 1. How often do you have a drink containing alcohol?: Monthly or less 2. How many drinks containing alcohol do you have on a typical day when you are drinking?: 1 or 2 3. How often do you have six or more drinks on one occasion?: Never Total Score: 1 PING-7 AMB Questionnaire PING-7 Date PING - 7 assessed: 04/12/24 Feeling nervous, anxious, or on edge: 0 = Not at all Not being able to stop or control worryin = Not at all Worrying too much about different things: 0 = Not at all Trouble relaxin = Not at all Being so restless that it is hard to sit still: 0 = Not at all Becoming easily annoyed or irritable: 0 = Not at all Feeling afraid as if something awful might happen: 0 = Not at all Total PING-7 score (0-4 normal; 5-9 mild; 10-14 moderate; 15-21 severe): 0 Source: Developed by Drs. Emil Guillen, Aida Spears, Adolph Waldrop and colleagues, with an educational lou from [employer] PING-7 Assessment Billing PING-7 Assessment Tool: PING-7 Assessment 19296 Review of Systems Const Details: Const Denies chills, Denies fatigue, Denies fever(s), Denies headache(s) and Denies weakness ENT Denies dizziness and Denies headache(s) Card Denies chest pain, Denies lightheadedness, Denies dyspnea and Denies other (Palpitations) Resp Denies cough, Denies dyspnea, Denies wheezing and Denies other ( shortness of breath) GI Denies abdominal pain, Denies melena, Denies hematochezia, Denies change in bowel habits, Denies dyspepsia and Denies nausea Denies hematuria and Denies dysuria Musc Denies abnormal gait, Denies myalgias, Denies arthralgias, Denies numbness and Denies tingling Skin/Breast Denies rash, Denies unusual bruising and Denies wounds Neuro Denies abnormal gait, Denies dizziness, Denies headache(s), Denies memory loss, Denies numbness, Denies Sensory deficit (Neuro), Denies tingling and Denies weakness Psych Denies anxiety, Denies depression, Denies memory loss Endo Denies cold intolerance, Denies fatigue, Denies heat intolerance, Denies polydipsia and Denies polyuria Aller/Immun Denies wheezing Physical exam (Primary Care) Vital Signs: Last Vital Signs Temp 97.9 F 04/12/24 12:25 Pulse 89 04/12/24 12:25 Resp 16 04/12/24 12:25 BP 108/54 L 04/12/24 12:25 Pulse Ox 93 04/12/24 12:25 Oxygen Delivery Method Room Air 04/12/24 12:25 BMI result Body Mass Index 27.0 Tobacco/Smoking Status: Tobacco use Status Tobacco use date assessed 04/12/24 04/12/24 12:28 Patient Tobacco Use Status Current everyday Tobacco 04/12/24 12:19 Tobacco use type Cigarette 04/12/24 12:19 e-Cigarette/Vaping Use Former Use 04/12/24 12:19 PHQ-9: PHQ-9 Score PHQ-9: Total score 0 04/12/24 12:28 Depression Screening Interpretation: Negative Thrive Assessment: Date of Thrive Assessment Date Thrive assessed 04/12/24 04/12/24 12:28 Currently or been in a relationship where the following occur: No concerns reported Const Other: General: no acute distress and well developed Nutritional Appearance: well nourished Orientation/consciousness: patient oriented x3 HENMT Head: Yes normocephalic and Yes atraumatic Eyes General: appearance normal, both eyes and all related structures Pupils: Equal, round and reactive pupils present EOM: EOMs intact bilaterally Resp Effort & Inspection: normal respiratory effort Auscultation: clear to auscultation bilaterally Cardio Rate: regular rate Rhythm: regular rhythm Heart sounds: S1 normal heart sound present, S2 normal heart sound present, no gallops, no murmurs and no rubs GI Palpation (GI): No Abdominal aortic bruit present, Soft to palpation, nontender, No hepatosplenomegaly present and No Rebound tenderness present Auscultation: normal bowel sounds General: Yes no CVA tenderness Back/Spine/Pelvis Back: no CVA tenderness Cervical Spine: cervical ROM normal and No Cervical spine tenderness Thoracic/Lumbar Spine: thoraco-lumbar ROM normal, No pain with thoraco-lumbar ROM, No thoracic spinal tenderness and No lumbar spinal tenderness Extrem General: Yes normal to inspection, No edema and No calf tenderness Skin General: warm and dry. Normal skin color. Normal skin turgorl Neuro General: patient oriented x3, gait normal and no focal neuro deficit Cranial nerves: Yes Equal, round and reactive pupils present Cognition (Neuro): normal cognition Gait exam (Neuro): Normal gait present Sensory Exam: No Sensory deficit (Neuro) Psych Appearance: grossly normal Affect: normal affect Attitude: cooperative Thought process: Normal thought process present Coding Level of Care Code Est Pt Level 3 (92467) Diagnoses Hypocalcemia E83.51 Hypoalbuminemia E88.09 Elevated PTHrP level R79.89 History of vitamin D deficiency Z86.39 Additional Codes PING-7 Assessment Billing - PING-7 Assessment Tool: PING-7 Assessment [id number] ([id number]) Assessment & Plan Assessment & Plan (1) Hypocalcemia: Code(s): E83.51 - Hypocalcemia Category: Medical Plan: Recent calcium level is low, 7.4. Instructed on healthy diet, including calcium. Will recheck calcium levels in 3 months. Follow-up in 3 months or sooner with symptoms or concerns. Verbalized understanding and agreed with the plan. (2) Hypoalbuminemia: Code(s): E88.09 - Other disorders of plasma-protein metabolism, not elsewhere classified Category: Medical Plan: Recent total protein level is low, 4.9. Continue with protein diet. Will recheck albumin levels in 3 months. (3) Elevated PTHrP level: Code(s): R79.89 - Other specified abnormal findings of blood chemistry Category: Medical Plan: Recent PTH level was elevated, 119.6. Will recheck PTH level in 3 months. (4) History of vitamin D deficiency: Code(s): Z86.39 - Personal history of other endocrine, nutritional and metabolic disease Category: Medical Plan: Reason vitamin-D level is normal, 53.0. Continue to take vitamin D3 1250 mcg weekly until complete and start vitamin D3 25 mcg daily. Will recheck vitamin-D3 3 months. Verbalized understanding and agreed with treatment plan. Orders: Orders Calcium 3 Months E83.51 - Hypocalcemia Parathyroid Hormone Intact 3 Months R79.89 - Other specified abnormal findings of blood chemistry Albumin Level 3 Months E88.09 - Other disorders of plasma-protein metabolism, not elsewhere classified Total Protein 3 Months E88.09 - Other disorders of plasma-protein metabolism, not elsewhere classified Vitamin D 25-OH Total 3 Months Z86.39 - Personal history of other endocrine, nutritional and metabolic disease Medications: New cholecalciferol (vitamin D3) 25 mcg PO DAILY 90 days 90 tabs 1RF
[2024-04-12 12:25] VITALS: BP 108/54; PULSE 89; RESP 16; TEMP 36.6; O2SAT 93; BMI 27.0
== END | disposition home or self-care (01) ==
PROVIDERS: PCP Nurse Practitioner Family; Visit Provider Nurse Practitioner Family
DX: E83.51 Hypocalcemia (principal); E88.09 Other disorders of plasma-protein metabolism, not elsewhere classified; R79.89 Other specified abnormal findings of blood chemistry; Z86.39 Personal history of other endocrine, nutritional and metabolic disease

== ENCOUNTER 2024-04-28 12:46 | Outpatient (AMB) | payer BC, SELFPAY ==
--- NOTE | 2024-04-28 12:55 | MHC.PC.OV ---
Vital Signs 04/28/24 12:59 Height 5 ft 8 in Weight 182 lb BMI 27.7 BP 94/52 L Blood Pressure Location Rt brachial Position Sitting Respiration 16 Pulse 93 Pulse Source Pulse Oximeter Temp 98.5 F Temp Source Oral Pulse Oximetry (%) 95 Oxygen Delivery Method Room Air Intake Visit Reasons: Swelling legs Intake Note: Right leg swelling. Started yesterday. Has a cut on leg that pt keeps hitting against things and it opens the wound. Vp Training Required: No Allergies amoxicillin Allergy (Severe, Verified 04/28/24 12:57) Unknown sulfamethoxazole [From Bactrim] Allergy (Severe, Verified 04/28/24 12:57) Unknown trimethoprim [From Bactrim] Allergy (Severe, Verified 04/28/24 12:57) Unknown Medication List - Last Reconciled 04/28/24 by Alisson Godinez PA-C aspirin 81 mg PO DAILY cholecalciferol (vitamin D3) 25 mcg PO DAILY 90 days enalapril maleate 7.5 mg PO BID Tobacco use date assessed: 04/12/24 Dental Screening Dental Screen Date: 04/12/24 HPI Swelling legs HPI Details History of Present Illness The patient is a 28-year-old male presenting with an acute issue of swelling and redness on the right leg. The symptoms initiated yesterday, when the patient noticed the leg was swollen, warm to the touch, and showed signs of redness. Patient states that the pain is only present in the area where there was a scab. He thinks that he has a foot infection because over the weekend he banged his roth on something and that caused the scab that was previously there to open and bleed. He states now there is redness and soft tissue swelling surrounding this. No fever, chills, or calf pain during ambulation were noted. No pain with walking. No calf pain, recent travel, recent illness, change in medications. No numbness, tingling or weakness. Recent attempts to manage symptoms included leg elevation which did somewhat help with the swelling. 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 - Exercise: Reports being physically active, primarily through walking. Review of Systems - Musculoskeletal: Denies pain With walking - Constitutional: Denies fever and chills - Respiratory: Denies shortness of breath Physical Exam General: Well developed, well nourished, in no acute distress. Appears stated age. Cardiac: RRR, no murmurs Lungs: clear, equal breath sounds Abdomen: soft, nontender, no CVA tenderness Extremities: the bilateral lower extremities are symmetrical in size. They are both 41 cm around the lower part of the leg. DP pulses palpated and 2+ bilaterally. There is a 1 cm x 1 cm scab on the anterior right lower leg with surrounding erythema. The erythema does somewhat isabella in the periphery and extend about 6 in x 6 in. Negative Homans sign Neuro: alert, oriented x3, mood appropriate Plan - The patient has been diagnosed with cellulitis of the right leg, likely secondary to a skin laceration acquired during a recent physical activity, suggestive of a bacterial infection. - Initiation of oral doxycycline, 100 mg twice daily for 10 days, to treat the suspected bacterial skin infection, acknowledging the patient's allergy to Amoxicillin and Bactrim. - Recommendation to elevate the right leg to reduce swelling - Instructions provided for appropriate wound care, maintaining cleanliness to prevent further infection. - Patient advised to observe for any escalation in symptoms such as increased swelling, pain, fever, or changes in leg condition, which may necessitate a visit to the emergency department. - Follow-up scheduled in 3-4 days with the primary care provider to reassess the leg condition and response to treatment. - [facility] selection[facility] and [facility] Surgical History (Reviewed 01/08/23 @ 09:35 by Sunshine Justin [facility]) History of cholecystectomy History of open heart surgery Social History (Updated 04/28/24 @ 13:04 by Vicky Burleson [facility]) Housing: House Alcohol intake: current Comment: couple times a year Patient Tobacco Use Status: Former Tobacco user Tobacco use type: Cigarette Cigarette Packs Per Day: 0.5 Cigarettes Per Day: 10 Years Smoked: 3 e-Cigarette/Vaping Use: Former Use service: No Current occupational status: employed 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 Current occupational exposures/hazards: Yes Cognitive needs: No Hearing needs: No Vision needs: No Questionnaire Thrive Questionnaire Date Thrive assessed: 04/09/24 I am a: Patient What is your living situation today?: I have a steady place to live Within the past 12 months, did the food you bought not last and you didn't have the money to get more?: Never true Within the past 12 months, did you worry whether your food would run out before you got money to buy more?: Never true Do you have trouble paying for medicines?: No Do you have trouble getting transportation to medical appointments?: No Do you have trouble paying your heating and electricity bill?: No Do you have trouble taking care of your child, family member or friend?: No Do you have trouble with day-to-day activities such as bathing, preparing meals, shopping, managing finances, etc.?: No Are you currently unemployed and looking for a job?: No Are you interested in more education?: No Please select the resources that you would like help with: None Currently or been in a relationship where the following occur: No concerns reported THRIVE Score: 0 PING-7 AMB Questionnaire PING-7 Date PING - 7 assessed: 04/12/24 Source: Developed by Drs. Emil Guillen, Aida Spears, Adolph Waldrop and colleagues, with an educational lou from [employer]. Physical exam (Primary Care) Vital Signs: Last Vital Signs Temp 98.5 F 04/28/24 12:59 Pulse 93 04/28/24 12:59 Resp 16 04/28/24 12:59 BP 94/52 L 04/28/24 12:59 Pulse Ox 95 04/28/24 12:59 Oxygen Delivery Method Room Air 04/28/24 12:59 BMI result Body Mass Index 27.7 Tobacco/Smoking Status: Tobacco use Status Tobacco use date assessed 04/12/24 04/28/24 13:02 Patient Tobacco Use Status Former Tobacco user 04/28/24 13:04 Tobacco use type Cigarette 04/28/24 13:04 e-Cigarette/Vaping Use Former Use 04/28/24 13:04 Thrive Assessment: Date of Thrive Assessment Date Thrive assessed 04/09/24 04/28/24 13:02 Currently or been in a relationship where the following occur: No concerns reported Coding Level of Care Code Est Pt Level 3 (67073) Diagnoses Cellulitis of right anterior lower leg L03.115 Assessment & Plan Assessment & Plan (1) Cellulitis of right anterior lower leg: Code(s): L03.115 - Cellulitis of right lower limb Category: Medical Plan . Medications: New doxycycline hyclate 100 mg PO BID 20 tabs 0RF
[2024-04-28 12:59] VITALS: BP 94/52; PULSE 93; RESP 16; TEMP 36.9; O2SAT 95; BMI 27.7
== END 2024-04-28 13:22 | disposition home or self-care (01) ==
PROVIDERS: PCP Nurse Practitioner Family; Visit Provider Physician Assistant
DX: L03.115 Cellulitis of right lower limb (principal)

== ENCOUNTER → 2024-04-28 12:46 | Outpatient (BNVA) | payer BC, SELFPAY | PROVIDERS: PCP Nurse Practitioner Family; Visit Provider Physician Assistant ==

== ENCOUNTER 2024-05-11 09:18 | Outpatient (AMB) | payer BC, SELFPAY ==
--- NOTE | 2024-05-11 09:22 | A.OFFPC_ITS ---
Vital Signs 05/11/24 09:26 Height 5 ft 8 in Weight 185 lb BMI 28.1 BP 108/51 L Blood Pressure Location Rt brachial Position Sitting Respiration 16 Pulse 81 Pulse Source Pulse Oximeter Temp 97.9 F Temp Source Oral Pulse Oximetry (%) 95 Oxygen Delivery Method Room Air Intake Visit Reasons: [facility] (Both Legs infection) [facility] Note[facility] Concessions Manager Required: No Allergies amoxicillin Allergy (Severe, Verified 05/11/24 09:38) Unknown sulfamethoxazole [From Bactrim] Allergy (Severe, Verified 05/11/24 09:38) Unknown trimethoprim [From Bactrim] Allergy (Severe, Verified 05/11/24 09:38) Unknown Medication List - Last Reconciled 05/11/24 by Darshan Ryder CNP aspirin 81 mg PO DAILY cholecalciferol (vitamin D3) 25 mcg PO DAILY 90 days enalapril maleate 7.5 mg PO BID Tobacco use date assessed: 05/11/24 Dental Screening Dental Screen Date: 05/11/24 Did you have a dental visit in the last 12 months?: Yes Did you have a dental problem in the last 6 months where you did not have access to dental care?: No Was dental information given to patient?: Patient has dentist HPI HPI Comments History of Present Illness Details 28-year-old male presents for ED dischar ge follow-up. He was evaluated and treated at [facility] between 04/30/2024 and 05/03/2024 for let us bilateral lower cellulitis. He was treated with IV antibiotic with improvement. He was discharged home on cephalexin 500 mg 4 times daily x7 days. He was advised to follow-up with his PCP within 1-2 weeks of discharge. He notes that he completed course of cephalexin yesterday. He notes that the redness to his legs have significantly improved and the swelling continues to improve. He denies pain to both legs. He denies constitutional symptoms. He has been working 8 hours Thursday through Thursday. 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 The wound has healed. 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 Current occupational exposures/hazards: Yes Cognitive needs: No Hearing needs: No Vision needs: No Questionnaire Thrive Questionnaire Date Thrive assessed: 04/09/24 I am a: Patient What is your living situation today?: I have a steady place to live Within the past 12 months, did the food you bought not last and you didn't have the money to get more?: Never true Within the past 12 months, did you worry whether your food would run out before you got money to buy more?: Never true Do you have trouble paying for medicines?: No Do you have trouble getting transportation to medical appointments?: No Do you have trouble paying your heating and electricity bill?: No Do you have trouble taking care of your child, family member or friend?: No Do you have trouble with day-to-day activities such as bathing, preparing meals, shopping, managing finances, etc.?: No Are you currently unemployed and looking for a job?: No Are you interested in more education?: No Please select the resources that you would like help with: None Currently or been in a relationship where the following occur: No concerns reported THRIVE Score: 0 PING-7 AMB Questionnaire PING-7 Date PING - 7 assessed: 04/12/24 Source: Developed by Drs. Emil Guillen, Aida Spears, Adolph Waldrop and colleagues, with an educational lou from [employer]. Review of Systems Const Details: Const Denies chills, Denies fatigue, Denies fever(s), Denies headache(s) and Denies weakness ENT Denies dizziness and Denies headache(s) Card Denies chest pain, Denies lightheadedness, Denies dyspnea and Denies other (Palpitations) Resp Denies cough, Denies dyspnea, Denies wheezing and Denies other ( shortness of breath) GI Denies abdominal pain, Denies melena, Denies hematochezia, Denies change in bowel habits, Denies dyspepsia and Denies nausea Denies hematuria and Denies dysuria Musc Denies abnormal gait, Denies myalgias, Denies arthralgias, Denies numbness and Denies tingling Skin/Breast Reports legs swelling and redness, Denies rash, Denies unusual bruising and Denies wounds Neuro Denies abnormal gait, Denies dizziness, Denies headache(s), Denies memory loss, Denies numbness, Denies Sensory deficit (Neuro), Denies tingling and Denies weakness Psych Denies anxiety, Denies depression, Denies memory loss Endo Denies cold intolerance, Denies fatigue, Denies heat intolerance, Denies polydipsia and Denies polyuria Aller/Immun Denies wheezing Physical exam (Primary Care) Vital Signs: Last Vital Signs Temp 97.9 F 05/11/24 09:26 Pulse 81 05/11/24 09:26 Resp 16 05/11/24 09:26 BP 108/51 L 05/11/24 09:26 Pulse Ox 95 05/11/24 09:26 Oxygen Delivery Method Room Air 05/11/24 09:26 BMI result Body Mass Index 28.1 Tobacco/Smoking Status: Tobacco use Status Tobacco use date assessed 05/11/24 05/11/24 09:29 Patient Tobacco Use Status Former Tobacco user 05/11/24 09:29 Tobacco use type Cigarette 05/11/24 09:29 e-Cigarette/Vaping Use Former Use 05/11/24 09:29 Thrive Assessment: Date of Thrive Assessment Date Thrive assessed 04/09/24 05/11/24 09:29 Currently or been in a relationship where the following occur: No concerns reported Const Other: General: no acute distress and well developed Nutritional Appearance: well nourished Orientation/consciousness: patient oriented x3 HENMT Head: Yes normocephalic and Yes atraumatic Eyes General: appearance normal, both eyes and all related structures Pupils: Equal, round and reactive pupils present EOM: EOMs intact bilaterally Resp Effort & Inspection: normal respiratory effort Auscultation: clear to auscultation bilaterally Cardio Rate: regular rate Rhythm: regular rhythm Heart sounds: S1 normal heart sound present, S2 normal heart sound present, no gallops, no murmurs and no rubs GI Palpation (GI): No Abdominal aortic bruit present, Soft to palpation, nontender, No hepatosplenomegaly present and No Rebound tenderness present Auscultation: normal bowel sounds General: Yes no CVA tenderness Back/Spine/Pelvis Back: no CVA tenderness Cervical Spine: cervical ROM normal and No Cervical spine tenderness Thoracic/Lumbar Spine: thoraco-lumbar ROM normal, No pain with thoraco-lumbar ROM, No thoracic spinal tenderness and No lumbar spinal tenderness Extrem General: Yes normal to inspection, No calf tenderness. Moderate nonpitting edema and mild erythema to both legs from upper calves to feet. Normal ROM. Positive DP/PT pulses bilaterally. No rash or wounds. Skin General: warm and dry. Normal skin color. Normal skin turgor Lesions: no lesions Rashes: no rashes Trauma: no lacerations or abrasions Wounds: no wounds Nails: normal Neuro General: patient oriented x3, gait normal and no focal neuro deficit Cranial nerves: Yes Equal, round and reactive pupils present Cognition (Neuro): normal cognition Gait exam (Neuro): Normal gait present Sensory Exam: No Sensory deficit (Neuro) Psych Appearance: grossly normal Affect: normal affect Attitude: cooperative Thought process: Normal thought process present Coding Level of Care Code Est Pt Level 3 (30586) Diagnoses Cellulitis of both lower extremities L03.115; L03.116 Assessment & Plan Assessment & Plan (1) Cellulitis of both lower extremities: Code(s): L03.115 - Cellulitis of right lower limb; L03.116 - Cellulitis of left lower limb Category: Medical Plan: No calf tenderness. Moderate nonpitting edema and mild erythema to both legs from upper calves to feet. Normal ROM. Positive DP/PT pulses bilaterally. No rash or wounds. No overt infection. Encouraged to avoid prolonged standing and elevate both legs to reduce edema. Advised to avoid bumping his legs on objects to prevent injury or wounds. May wear compression stockings during work hours. May take Tylenol ibuprofen as needed for pain or discomfort. Advised to perform lab work and follow-up as planned in June for labs review. Return sooner with symptoms or concerns. Verbalized understanding and agreed with treatment plan. Medications: Refilled cholecalciferol (vitamin D3) 25 mcg PO DAILY 90 days 90 tabs 1RF
[2024-05-11 09:26] VITALS: BP 108/51; PULSE 81; RESP 16; TEMP 36.6; O2SAT 95; BMI 28.1
--- OUTSIDE RECORDS SUMMARY | 2024-05-11 10:06 | XMS_ITS | Continuity of Care Document ---
Author Organization [facility] Address [address] [place] [id number]- [facility] Name Relationship Address Phone DIMITRIS CHRISTINA Personal Relationship Unknown Unav ailable MOHIT NOLASCO Personal Relationship Unknown Kyra vailable SANFORD, DIMITRIS Personal Relationship Unknown Unav ailable NOLASCO-SANFORD, RONNIE Personal Relationship Unknown Unavailable NOLASCO, DIMITRIS Personal Relationship Unknown Unav ailable NOLASCO, HANANE father Unknown Unavailable NOLASCO-SANFORD, PATTIANN mother Unknown Unav ailable SANFORD, DIMITRIS Personal Relationship Unknown Unav ailable TRAY, DIMITRIS Personal Relationship Unknown Unav ailable SANFORD, DIMITRIS Personal Relationship Unknown Unav ailable NOLASCO-SANFORD, PATTIANN mother Unknown Unav ailable SANFORD, DIMITRIS Personal Relationship Unknown Unav ailable Care Team Providers Care City Clerk Name Role Phone Britni PRECIADO, Darshan Primary Care Physician [phone] Encounter [facility]BR [id number] Date(s): 04/05/24 - 05/05/24 [facility] [address] [place] [id number]- Attending Physician: Karli Bro Admitting Physician: Karli Bro Referring Physician: AdmtrKarli Encounter Type: Triage Allergies, Adverse Reactions, Alerts Substance Criticality Severity Reaction Reaction Severity Status amoxicillin hives Active sulfADIAZINE Hives Active Bactrim hives Active Medications aspirin 81 mg oral tablet, chewable 81 mg, 1, tablet, By Mouth, Daily at bedtime, 0 Refills Start Date: 12/02/05 Status: Ordered Repeat number: 1 cephalexin monohydrate 500 mg oral capsule 1 capsule = 500 mg, By Mouth, 4 times a day, for 7 days, # 28 capsule, 0 Refills, Acute 05/10/24 8:45:00 AM EDT, 05/03/24 8:45:00 AM EST, Capsule, [id number], Partial fill upon patient request if the prescription is for a schedule II opioid drug., 173, cm, 05/03/24 7:10:00 EST, Height,75.8, kg, 05/01/24 13:57:00 EST, Dry Weight Start Date: 05/03/24 Stop Date: 05/10/24 Status: Ordered Quantity: 28.0 Unit: capsule Repeat number: 1 Omeprazole By Mouth, Daily, PRN Indigestion, 0 Refills, Maintenance, 01/12/15 11:37:02 AM EST Start Date: 01/12/15 Status: Ordered Repeat number: 1 Vasotec 5 mg oral tablet 1.5 tab, By Mouth, 2 times a day, # 270 tablet, Refills 1, Tot. Refills 1, Maintenance, 04/05/24 11:00:00 AM EST, Route to Pharmacy Electronically, [id number], 172.5, cm, 04/05/24 9:33:00 EST, Height Start Date: 04/05/24 Stop Date: 10/02/24 Status: Ordered Quantity: 270.0 Unit: tablet Repeat number: 2 Vitamin D3 400 intl units oral capsule See Instructions, 2 capsule By Mouth Daily, # 100 capsule, 11 Refills, Maintenance, 01/28/16 4:52:26 PM EST, [facility] #[id number] Start Date: 01/28/16 Status: Ordered Quantity: 100.0 Unit: capsule Repeat number: 12 Problem List Condition Confirmation Course Effective Dates Status Health St atus Informant 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 Obesity Confirmed Active Social History Social History Type Response Smoking Status 10 or more cigarette s (1/2 pack or more)/day in last 30 days entered on: 04/05/24 Sex Sex Representation Male (finding) Cardiology * Event Display: CardioPulmonary Exercise Test Results Authored Date: Cardiology Outpatient Note * Rajwinder Lim: MODIFY Rajwinder Lim: MODIFY, SIGN Rajwinder Lim: SIGN, PERFORM Rajwinder Lim: PERFORM, MODIFY Rajwinder Lim: MODIFY, SIGN Rajwinder Lim: SIGN, VERIFY Rajwinder Lim: VERIFY, SIGN Event Display: Cardiology Note Office Authored Date: [id number] Patient: MOHIT NOLASCO Age: 22 years Sex: Male : 1995 Associated Diagnoses: None Author: Rajwinder Lim Mohit Nolasco is a 22-year-old man with 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 He was palliated with staged [employer] procedure to a fenestrated lateral tunnel Fontan. He underwent device closure of the Fontan fenestration in June 1999. He denies chest pain, palpitations, dyspnea on exertion, syncope, near syncope, orthopnea, PND, or lower extremity edema. He denies nausea vomiting or diarrhea. He denies any snoring or observed apneic episodes. He denies taking naps. He relates headaches occurring 2 times per month. He denies any joint pains. He denies any bleeding or bruising problems. He denies fever chills or night sweats. Hetries to limit himself to 1500 mL of fluid per day. He tries to limit his salt intake. He does not exercise. His last dental exam and eye exam were one year ago. Review of Systems All other systems were reviewed with the patient and were negative. Review / Management Past Medical History: 1.) Extraction of teeth #1, #4 at 16, #17, and #32 for disturbed eruption of teeth on was performedon June 10, 2013 at [facility] by Dr. Manoj Lynn DDS, 2.) Direct laryngoscopy was performed on October 25, 2007 at [facility] by Dr. Corky Miles for hoarseness and vocal fold nodules. 3.) Myopia. His last ophthalmologic evaluation was last year. 4.) Gastroesophageal reflux disease 5.) Constipation. 6.) Cholecystectomy is performed at 5 years old Medications: 1.) Aspirin 81 mg once daily 2.) Enalapril 7.5 mg twice daily 3.) Omeprazole 20 mg once daily 4.) MiraLAX 17 g once daily as needed which he takes approximately 2-3 times a week His last dental evaluation was last year. Last eye exam was one year ageo He is allergic to amoxicillin and bactrim which both cause hives and a rash He denies tobacco use. He drinks one alcohol containing beverage a month. He denies IV drug, marijuana, or other illicit drug use. There is no family history of congenital heart disease. Physical Examination Weight was 108.3 kg, blood pressure 110/62 mmHg, heart rate 88 bpm and regular, and O2 saturation 93% on room air. JVP was approximately 8-10 cm. He had normal carotid upstrokes with no bruits. Lungs- Clear to auscultation, no wheezing or rales. Cardiac exam- single S1 and single S2. There was no appreciable systolic, diastolic, or continuous murmur. There was no ventricular heave, no clicks, S3, or S4. Abdomen- obese, soft, nontender, nondistended with bowel sounds in all 4 quadrants, no hepatosplenomegaly. There were 2+ pulses in the upper and lower extremities bilaterally There was no peripheral clubbing or cyanosis. There was trace lower extremity edema. There were well healed median sternotomy and chest tube incisions. Results Review EKG today- Normal sinus rhythm at 80 bpm, right axis deviation, nonspecific ST/T wave abnormalities Result type: Echocardiogram - Complete Result date: May 25, 2018 13:10 EDT Result status: Modified Result title: Echo Complete Performed by: Flaco Hong MD on May 25, 2018 13:10 EDT Verified by: Flaco Hong MD on May 25, 2018 13:10 EDT Encounter info: [id number], [facility], One Time OP, 05/25/2018 - 05/25/2018 Contributor system: frintit * Final Report * Echo Complete This document has an image Echo Complete-Doppler, Colorflow, M-Mode Transthoracic Echocardiography Report (TTE) Patient Demographics Patient Name MOHIT NOLASCO Date of Study 05/25/2018 Corporate Gender Male Facility Race Ethnicity Date of 1995 Height: 68 inches Age 22 year(s) Weight: 215 pounds Accession Number [id number] BSA: 2.11 m2 Room Number BMI: 32.69 kg/m2 Referring Physician Rajwinder STALEY Interpreting Flaco Hong MD Physician Cushion Assembler Madison Morley, [facility] Indications Hypoplastic Left Heart Syndrome (HLHS) and S/P Fontan. Clinical History Aortic atresia. Study Data Type of Study TTE procedure:Echo 2D Congen w Doppler & Colorflow w/o contrast. Study Date05/25/2018 Start Time: 01:10 PM Study Location: 3300 Adult Echo Study Status: Echo lab Patient Status: Routine Technical Quality: Adequate EKG: Within normal limits HR: 77 bpm Doppler Measurements MV Peak E-Wave: 61.7 cm/s MV Peak A-Wave: 47.9 cm/s MV E/A Ratio: 1.29 MV P1/2t: 72 msec MV Mean Gradient: 2 mmHg E' Septal Velocity: 8.88 cm/s MV Deceleration Time: 232 msec E' Lateral Velocity: 7.46 cm/s MV Area (PHT): 3.06 cm2 E/Med E':6.505331 E/Lat E':8.632629 PV Peak Velocity: 99.1 cm/s PV Peak Gradient: 3.93 mmHg Cardiac Anatomy Left Ventricle/Interventricular Septum The morphologic left ventricle is hypoplastic. Right Ventricle Patient with complex congenital cardiac disease with history of hypoplastic left heart syndrome. Unable to assess cardiac structure and function adequately on the available images. The systemic ventricle (the morphologic right ventricle) appears dilated on limited views. Pulmonic Valve The pulmonic valve velocity is normal. Pericardium/Extracardiac There is no significant pericardial effusion. Summary Patient with complex congenital cardiac disease with history of hypoplastic left heart syndrome. Unable to assess cardiac structure and function adequately on the available images. The systemic ventricle (the morphologic right ventricle) appears dilated on limited views. Comparison Comparison is made to the study of January 14, 2017. Limited studies making direct comparison difficult. Signature Impression and Plan Mr. 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 He was palliated with staged Humaira procedure to a fenestrated lateral tunnel Fontan. He underwent device closure of the Fontan fenestration in June 1999. He denies any significant cardiovascular symptoms. We would recommend he have a Cardiac MRA within 1 year to evaluate his ventricular size and function, assess Fontan pathway and assesss for aortopumonary collaterals. His mother's cell is [phone]. We have orderered [employer] laboratory studiesto assess his liver function given chronic venous congestion from Fontan physiology. He is encourage d to exercise more regularly. We will plan on seeing him back in 1 year after cardiac MRI is performed, sooner at the discretion of his physicians as clinically indicated. 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 There were 2 small openings in the atrial septum. One was a tiny centrally located patent foramen ovale and the other was a small atrial septal defect that was located superiorly near the superior vena cava???right atrium junction. Severe mitral stenosis. Probable aortic atresia. Very tiny left ventricle. The right ventricle makes at the apex of the heart. Hypoplastic mitral valve that opens a small amount. Very small amount of low velocity flow coming through the valve. No documentation of flow antegrade across the aortic valve. No true valve tissue was imaged. Retrograde flow in the transverse aortic arch. Theaortic arch was moderately hypoplastic with the smallest dimension measuring 0.34 mm at the sinotubular junction in the distal transverse aortic arch. The largest dimension was at the ascending aortanear the takeoff of the right innominate artery which measured 0.45 mm. Left aortic arch with normal branching pattern. Some color flow suggestive of tiny sinusoids in the wall of the left ventricle,although this could represent flow around the intracavitary muscle bundles. The right ventricle is very muscular, particularly at the apex. There was no detectable intracavitary gradient. Trivial tricuspid regurgitation. Very large patent ductus arteriosus with predominantly right to left flow. 5.) Humaira stage I procedure using a 3.5 mm Fouke-Bernardo graft from the innominate artery to the rightpulmonary artery, 16 mm aortic homograft augmentation of the aortic arch, and primary closure of the transected pulmonary artery was performed on 1995 at [facility] by Dr. Apollo Cohen. A median sternotomy (#1) was performed the heart was suspended in a pericardial sling. The brachiocephalic vessels were dissected out and snared. The right and left pulmonary arteries were dissected out. The ductus arteriosus was dissected out. Heparin was given. The ductus arteriosus wascannulated with a #10 arterial perfused are through a pursestring suture. The right atrium was cannulated with a single venous cannula through a pursestring suture. He was placed on cardiac pulmonarybypass and cooled to 15??C in preparation for hypothermic circulatory arrest. Both pulmonary arteries were occluded. The ductus arteriosus was clamped and occluded distally. A large dose of crystalloid Cardioplegia was administered via the duct to the aorta with a rapid attainment of electrical silence. The duct was transected and the distal end ligated with a 5-0 Prolene. Cardiopulmonary bypass was discontinued and the arterial cannula was removed. The pulmonary artery was transected directly above the commissures. The distal end was closed using a running suture of 5-0 Prolene. The aortic arch was opened widely from the takeoff of the left subclavian artery on its undersurface all the wayto just above the atretic aortic commissures. A 16 mm aortic homograft was used to fashion a patch for the aortic arch. This was sewn into the undersurface of the aortic arch using running suture of 6-0 Prolene. At the level of the pulmonary valve where the pulmonary artery had been previously transected, the pulmonary arterial wall was anastomosed to the aortic root using 2 simple sutures of 7-0Prolene. The sutures were used to further establish the suture line on the homograft patch incorporating the pulmonary artery into the aortic augmentation. All suture lines were tied down with evidence of hemostatic effect. The atrial cannula was removed. Through the atrial cannulation site a generous atrial septectomy was performed removing all of the tissue within the limbus creating a wide open intra-atrial communication. The atrial cannula was replaced. The heart was de-aired. The aortic cannula was placed into the neoaortic root. Cardiopulmonary bypass was reinstituted. The right innominate artery was controlled with a side-biting clamp and an arteriotomy was performed on its undersurface. A 3.5 mm Fouke-Bernardo tube graft was anastomosed to this arteriotomy using a running suture of 6-0 Prolene. Distally the right pulmonary artery was also controlled with a C-clamp and a second runninganastomosis with 6-0 Prolene was performed to the distal end of the Fouke-Bernardo tube graft. 2 atrial wires and a single ventricular epicardial wire were placed on the surface of the heart. 2 intracardiac common atrial lines were left in place. He was rewarmed. He developed sinus rhythm without ventricular ectopy. He was weaned from cardiac coronary bypass with dopamine 10 mcg/kg/min. Immediately post bypass the systemic blood pressure was in the low 50s with an arterial saturation in the 50-60 range. The pulmonary artery was somewhat kinked and repositioning of the pulmonary artery resulted in an immediate increase of the arterial saturation to 80%. Dopamine was increased to 15 mcg/kg/min and epinephrine 0.2 mcg/kg/min was added. Hemostasis was obtained. Protamine was given. Two 20 [place] chest tubes were placed in the mediastinum. The chest was left open and an Esmark silastic membrane was sewn into the defect usinga running suture of 6-0 Prolene to the skin edges. 6.) Sternal debridement and closure of performed on 1995 at [facility] by Dr. Apollo Cohen. The mediastinum was thoroughly debrided and defibrinated. Cultures were obtained from the mediastinal space. The mediastinum was closed with 4 stainless steel wires to reapproximate the sternum. The pre-fascia and subcutaneous tissue were closed with running suture of 3-0 Vicryl. The skin was closed with running subcuticular suture of 4-0 Vicryl. 7.) Cardiac catheterization was performed in November 1995 right ventricular end-diastolic pressure is 5 mmHg and mean pulmonary artery pressure 10 mmHg. There was no distortion of the branch pulmonary arteries. There was no residual aortic coarctation. There was trivial to mild atrioventricular valve regurgitation.. 8.) Bidirectional Abel cavopulmonary anastomosis were performed on [address] [facility] [address] Apollo Cohen. A reoperative median sternotomy (#2) was performed. Dense pericardial adhesions were taken down. This was tedious as the adhesions were quite vascular and dense. The ascending aorta was cannulated through a pursestring suture of 4-0 Tevdek. Heparin was administered.The innominate vein and right atrium were both cannulated. The pulmonary bypass was instituted. He was cooled to 32??C with the heart melodie. The superior vena cava was transected just above itsjunction with the right atrium. The azygos vein was doubly suture-ligated. The Ana-Taussig shunt was ligated. The arterial end of the superior vena cava???right atrial junction was oversewn with a double layer of 5-0 Prolene. The insertion of the Ana-Taussig shunt into the pulmonary artery was transected. The branch pulmonary arteries were of adequate size measuring approximately 6 mm. The Ana-Taussig shunt was clipped twice with a metallic clip and oversewn with a double layer closure of 5-0 Prolene. The pulmonary artery was fully mobilized from the hilum to underneath the aorta.While mobilizing underneath the aorta, the posterior surface of the aorta was inadvertently entered. To repair the this required cooling to 29??C with a heart still melodie and placement of severa l repair sutures. At no time was there evidence of electrocardiographic changes to suggest coronaryartery obliteration, nor was there any evidence of stenosis of the branch arteries of the aorta. After repair of the aorta, the distal end of the superior vena cava was anastomosed to the pulmonary artery at the site of the prior insertion of the Ana-Taussig shunt. This was anastomosed using run anastasiya suture of 5-0 Prolene. Systemic warming was instituted. He was weaned off cardiopulmonary bypass. Initial oxygen saturation was 60-65%. A systolic blood pressure of 80 mmHg and the superior venacava pressure of 50 mmHg. direct measurement of the superior vena cava and the right pulmonary artery demonstrated normal more than 2 mm gradient across the anastomosis. Clear to pulmonary bypass wasdiscontinued. He was in sinus rhythm. Dopamine 10 mcg/kg/min and amrinone 10 mcg/kg/min were started. 2 atrial intracardiac lines were left in place. The common atrial line was left in place. The common atrial pressure was 5-7 mmHg. A single pericardial ventricular pacing wire was left on the surface of the heart. Protamine was given. A 20 [place] chest tube was left in the mediastinum. There was diffuse and generalized bleeding from all cardiac surfaces. This was treated with aggressive coagulation factor repletion and application of thrombin-soaked Gelfoam to the bleeding surfaces. Hemostasis was obtained. The sternum was closed with stainless steel wires. The presternal fascia and subcutaneous tissue were closed using running 3-0 Vicryl. The skin was closed with running subcuticular 4-0Vicryl. Steri-Strips were placed over this and a dry sterile dressing was placed. 9.) Cardiac catheterization was performed in August 1997. Superior vena cava pressure was 12 mmHg andright pulmonary artery pressure of 13 mmHg. Left pulmonary artery pressure 11 mmHg. Right atrial pressure 7-8 mmHg. Pulmonary veins were fully saturated. The ventricular outflow tract and aortic archwere unobstructed. The Abel pathway was without obstruction although there appeared to be preferential flow to the left lung suggesting either washout o or slow flow in that direction. No significant venous or arterial pulmonary collaterals were noted. 10.) Lateral tunnel fenestrated Fontan procedure using a 4 mm fenestration in right pulmonary artery plasty was performed on September 07 1997 at [facility] by Dr. Reji Díaz. The lateral tunnel to pulmonary artery anastomosis was felt to be inadequate in diameter after coming off bypass and return to bypass was made to reconstruct the anastomosis and patch plasty the right and leftmain pulmonary arteries. There was exuberant saturated blood return from the right pulmonary arterysuggestive of a systemic to pulmonary artery collateral on that side that was also suggested by apparent washout on the angiogram preoperatively. His chest was left open with placement of Esmarch. 11.) Mediastinal exploration for bleeding was performed on September 07, [address] Reji Díaz at [facility]. He had ongoing bleeding after the initial operation earlier in the day with his much as 200 cc or more in an hour. The predominant bleeding was coming from the mediastinal chest tube. There is suspicion of bleeding posterior to the pulmonary artery. There is diffuse focusesof bleeding from near the right atrium to the pulmonary artery. His chest was draped and prepped for exploration in the intensive care unit. The Esmarch was opened longitudinally. Midline sternal retractor was placed. A small amount of clot was removed from the mediastinum and pleural space. A predominant focus of bleeding was noted to be emanating from behind the main pulmonary artery near the left pulmonary artery patch plasty. On careful examination of the entire circumference of that structure, there is no discrete focus of bleeding. It appeared to be coming from a posterior aspect of theaorta of the anterior inferior aspect of the main pulmonary artery which was outside of view. Thromb in-soaked Gelfoam was used to pack the area. It was reexamined 10 minutes later and bleeding was still occurring. Thrombin-soaked Gelfoam was removed and a single piece was then placed between the aorta and main pulmonary artery at which time all the bleeding was noted to subside at once. The chestwas irrigated with antibiotic solution. The area was observed for several minutes. There is no further bleeding. The Esmarch was reapproximated with 5-0 Prolene suture in its midline. Sterile dressing was applied. 12.) Sternal closure was performed on September 10, [address] Reji Aj at [facility]. 13.) Cardiac catheterization was performed on June 20, 1999 at [facility]. There was unobstructed Fontan pathway with a mean pressure of 10-13 mmHg. Right ventricular end-diastolic pressure was approximately 8-10 mmHg. Good cardiac output of 3.2 L/min/m??. Patent Fontan fenestration with right to left flow. Qp/Qs 0.72 before device closure. Venous collaterals from the innominate to superior vena cava. No significant aortopulmonary collaterals. Coil occlusion of venous collaterals was performed. Device closure of the Fontan fenestration using a 17 mm CardioSEAL device was performed. Systemic vascular resistance 14.4 Wood units. Primary vascular resistance 1.7 Wood units. 14.) Cardiac MRI was performed on April 20, 2013 at [facility]. Abdominal Situs:Solitus. Cardiac Position: Levocardia. Cardiac Segments: {S,D,S}. Conus: Subpulmonary. Large susceptibility artifact from indwelling coils obscures the majority of the superior mediastinum including the superior vena cava, neoaortic root and aortic arch and proximal branch pulmonary arteries preventing flow analysis although there is somewhat improved visualization with black blood imaging. Magnetic resonance angiogram not performed due to inability to establish IV access. Unobstructed inferiorvena cava, superior cavopulmonary anastomosis and Fontan baffle with a small artifact at the level of the fenestration closure device. No evidence of thrombus in the Fontan pathway. Unobstructed small caliber proximal left and right pulmonary arteries with fairly normal hilar branching on axial imaging. Unobstructed pulmonary venous return to the left atrium. Large unrestrictive atrial septal defect. Mild tricuspid regurgitation (6% regurgitation fraction by comparison of tricuspid valve inflowand net flow through the right ventricular outflow tract). Unobstructed right ventricular outflow tract to mildly dilated neoaortic root and ascending aorta. The transverse arch has a normal caliber with normal branching. On black blood imaging the daniella isthmus is obscured by artifact but appears relatively small in caliber. Unobstructed descending aorta. Correlation with CT angiography would be helpful for further evaluation of the aortic arch, possible aortopulmonary collaterals as well as thebranch pulmonary arteries. No significant daniella aortic regurgitation. 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 Patent Stansel anastomosis. Normal right ventricular size (indexed end-diastolic volume 97 ml/m2) and systolic function (ejection fraction 50%). No pericardial or pleural effusion. Right ventricular end-diastolic volume 199 mL (97.4 mL/m??, Z score 0.78). Right ventricular end- systolic volume 99 mL (48.4 mL/m??). Right ventricular ejection fraction 50.3%. Right ventricular stroke volume 100 mL (48.8 mL/m??). Right ventricular mass 81 g (39.6 g/m??). Right ventricular mass/volume 0.41 g/mL. The aortic root and short axis view measures 0.8 x 0.8 cm. Pulmonary root 3.2 cm. Tricuspid regurgitation fraction 6%. 15.) Echocardiogram was performed on April 26, 2015 at [facility]. Large atrial septal defect. Mild tricuspid regurgitation. Hypoplastic left heart syndrome. Low normal to mildly depressed right ventricular systolic function. Trivial neoaortic valve regurgitation. The aortic archwas not well seen. There is trivial flow acceleration with a peak gradient of 20 mmHg in the aorticarch. The descending aorta Doppler profile was not significantly blunted. No pericardial effusion. No significant residual fenestration flow. The superior vena cava, inferior vena cava, and left pulmonary artery appeared unobstructed. The right pulmonary artery was not well seen. 16.) Cardiac catheterization was performed on April 27, 2015 at [facility]. Cardiac index 3.3 L/min/m??. Aortic saturation 93%. Mixed venous O2 saturation 76%. There were no demonstratable left to right or right to left sense. Assuming pulmonary venous saturation was equal to theright ventricle Qp/Qs was 1. Mean Fontan pressure fluctuated from 17-18 mmHg. There is a 2 mm gradient into both the right and left pulmonary branch pulmonary arteries. Bilateral transpulmonary gradient was 3 mmHg. Pulmonary vascular resistance 0.9 index Wood units. Right ventricular pressure 99/12mmHg. There was an approximately 10 mm gradient across the ascending aorta and an additional 5 mm gradient into the descending aorta. There was a widely patent Fontan repair. There is no obstruction involving the superior vena cava or inferior Fontan pathways. There is no demonstratable venous collaterals. The superior inferior flow somewhat preferentially stream to the left pulmonary artery. Theright pulmonary artery had a slight narrowing in its proximal segment and involving the right upperpulmonary artery with no associated pressure gradients. There is normal transpulmonary transit timewith no evidence of significant pulmonary atrioventricular malformation burden. The neoaortic valvewas competent. The Fxjtd-Xqjy-Mwhmbrd was patent with adequate filling of the proximal coronaries. The aortic arch was unobstructed.There is no significant atrial pulmonary collateral burden. No interventions were performed. Echocardiogram was performed on January 13, 2017 at [facility]. Left Ventricle/Interventricular Septum: There is a hypoplastic left ventricle. Left Atrium/Interatrial Septum: The left atrium is poorly visualized. Interatrial septum is not well seen. Aortic Valve: The neoaortic valve is poorly visualized. There is mildly increased peak gradient at 19 mmHg. There is no significant aortic regurgitation. Aorta: The ascending aorta and aortic root are not visualized. There is no significant coarctation of the aorta, the peak gradient across the isthmus is 16 mm Hg. Right Ventricle: The right ventricle is poorly visualized. It appears dilated. Right ventricular systolic function appe ars reduced. Tricuspid Valve: The tricuspid valve is poorly visualized. The neoaortic valve is poorly visualized. There is mildly increased peak gradient at 19 mmHg. There is no significant aortic regurgitation. Unable to assess the Fotan pathway. Cardiopulmonary exercise stress test was performed on January 13, 2017 at [facility].Peak VO2 22 mL/kg/min (46% predicted) or 2.202 L/min (63% predicted). Peak work rate 128 W (55% predicted). VO2 at anaerobic threshold 1.345 L/min (38% of maximum predicted VO2). Baseline heart rate 90 bpm which increased to 132 bpm at peak exercise (70% of maximum predicted heart rate). Peak O2 pulse 16.7 mL per 3 (110% predicted). Baseline O2 saturation 93% and 88% at peak exercise. VE/VCO2 31 FVC 3.48 L (66% predicted). FEV1 3.13 L (73% predicted). MVV 63 L (35% predicted). Baseline blood pressure is 122/60 mmHg and 138/60 mmHg at peak exercise. Moderately depressed peak oxygen consumptionat 22 mL/kg/min (6.3 METS). Slightly decreased anaerobic threshold. Mild chronotropic incompetence.2 pulse suggestive of appropriate ability to augment stroke-volume with activity. Increased VE/VO2 slope as expected in Fontan physiology. No atrial or ventricular ectopy appreciated. No pathologic ST segment changes with exertion. Normal blood pressure response to activity. Mild worsening desaturation with activity. Holter monitor was performed on February 08, 2016. Heart rate ranged from 62-106 bpm with average heart rate of 75 bpm. 14 isolated ventricular ectopic beats. No supraventricular ectopic beats. No high-grade atrioventricular block. Echocardiogram was performed on January 18, 2016 at [facility]. Large unrestrictive atrial septal defect. Good right ventricle systolic function. Trivial tricuspid regurgitation. The neoaortic valve is morphologically normal. There is mild stenosis. Mild gradient across the aortic isthmus with estimated gradient of 10 mmHg. The superior vena cava and inferior vena cava are normal insize. There is no dttfi-jh-ugok shunt noted across the Fontan baffle. Laboratory studies performed on January 18, 2016 showed WBC 6.6, hemoglobin 15.9, hematocrit 47.3,platelet 260, MCV 91.3, sodium 141, potassium 4.5, chloride 102, CO2 24, glucose 102, BUN 12, creatinine 0.8, calcium 9.4, total protein 7.6, albumin 4.7, alkaline phosphatase 97, AST 38, ALT 35, total bilirubin 1.3, NT???pro BNP 144, and alpha-fetoprotein 0.7. Liver ultrasound was performed on January 26, 2015 at [facility]. The liver demonstrates normal size and contour. There is homogeneous normal echogenicity without focal lesion. No intrahepatic or extrahepatic biliary ductal dilatation is apparent. There is no ascites and the visualized portion of the right kidney is normal. Included portions of the aorta and IVC are unremarkable. Cardiopulmonary exercise stress test was performed on July 14, 2014 at [facility]. PeakVO2 20.1 mL/kg/min (40% predicted) or 1.76 L/min (49% predicted). Peak work rate 141 W (67% predicted). VO2 at anaerobic threshold 1.091 L/min (30% of maximum predicted VO2). Baseline heart rate was 76 bpm and 121 bpm at peak exercise (63% of maximum predicted heart rate). Picot 2 pulse 14.5 mL perbeat (111% predicted). Baseline saturation was 88% and 86% of peak exercise. Blood pressure 122/70 mmHg. VE/VCO2 32. Peak RER 1.26. Blood pressure at peak exercise 166/62 mmHg. Moderately depressed peak VO2 with depressed anaerobic threshold suggestive of cardiac dysfunction. This is decreased from metabolic stress test performed on October 14, 2011 at which time the peak VO2 was 28.3 mL/kg/min. Normal oxygen pulse indicative of appropriate ability document stroke-volume with activity. Depressedmaximal heart rate due to chronotropic competence. Maximal effort as indicated by peak RER greater than 1.1. Baseline desaturation with no significant worsening with peak exertion. No ectopy or pathologic ST segment changes with peak exertion. Increased VE/VO2 NVE/VCO2 slope as expected in Fontan physiology. He was asymptomatic throughout the study with no chest pain, dizziness, or abnormal breathlessness. Staff Table Operator I have reviewed the history and intake sheet, examined the patient and participated in the decisionmaking for this patient as the attending physician. I agree with the findings and the plan of care as documented in Ms. Dimitry STALEY's note. 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 We would recommend he have a cardiac MRI to evaluate his ventricular size and function, Fontan pathway, and for aortopulmonary collaterals. Would also recommend he have laboratory studies including liver function testing, electrolytes, BUN, creatinine, FibroSure, and liver ultrasound. We will plan onseeing him back in approximately 1 year for follow-up evaluation. Manoj Valdes MD Staff Table Operator [facility] Patient Care team information Care Team Personnel Name: Rosa M Wlofe MD Position: S Physician - Pediatrics Member Role: Lifetime Consulting Physician Name: Darshan Ryder NP Position: Reference Physician Member Role: PCP Address: [address] [place] [phone]- Telecom: Care Team Related Persons Name: HANANE NOLASCO Name: RONNIE FINK Name: RONNIE FINK Insurance Providers Guarantor name: MOHITPINKY BLANDONE Health Plan Information #: 1 Payer: HMO BLUE IN NETWORK Member Number: NA Policy Number: NA Group Number: NA
== END 2024-05-11 10:14 | disposition home or self-care (01) ==
LOC: HO.HMCFM 09:19
PROVIDERS: PCP Nurse Practitioner Family; Visit Provider Nurse Practitioner Family
DX: L03.115 Cellulitis of right lower limb (principal); L03.116 Cellulitis of left lower limb

== ENCOUNTER → 2024-05-11 09:18 | Outpatient (BNVA) | payer BC, SELFPAY | PROVIDERS: PCP Nurse Practitioner Family; Visit Provider Nurse Practitioner Family ==

== ENCOUNTER 2024-07-01 11:01 | Outpatient (REF) | payer BC, SELFPAY ==
--- OUTSIDE RECORDS SUMMARY | 2024-07-01 12:08 | XMS_ITS | Encounter Summary ---
Author Organization [facility] Address [address] [place] [address] Care Team Providers Care Manager Of Finance Name Role Phone Lilia Colbert MD Primary Care Provider Tom ramirez Encounter Details Date Type Department Care Team Description 04/27/2015 Corporate Staff Accountant Report Medical Records [address] [place] [id number] [place] [address] Social History Tobacco Use Types Packs/Day Years Used Date Smoking Tobacco: Never Alcohol Use Standard Drinks/Week Comments Not Asked 0 (1 standard drink = 0.6 oz pur e alcohol) Sex Assigned at Date Recorded Not on file documented as of this encounter Plan of Treatment Not on file documented as of this encounter Visit Diagnoses Not on filedocumented in this encounter Care Teams Manager Of Finance Relationship Specialty Start Date End Date Lilia Colbert MD PCP - General Internal Medicine 12/29/14 documented as of this encounter
--- OUTSIDE RECORDS SUMMARY | 2024-07-01 12:08 | XMS_ITS | Encounter Summary ---
Author Organization [facility] Address [address] [place] [address] Care Team Providers Care Fruit Or Nut Farmer Name Role Phone iLlia Colbert MD Primary Care Provider Tom ramirez Encounter Details Date Type Department Care Team Description 05/04/2015 Receiving Lead Report Medical Records [address] [place] [id number] Rosa M Wolfe Social History Tobacco Use Types Packs/Day Years Used Date Smoking Tobacco: Never Alcohol Use Standard Drinks/Week Comments Not Asked 0 (1 standard drink = 0.6 oz pur e alcohol) Sex Assigned at Date Recorded Not on file documented as of this encounter Plan of Treatment Not on file documented as of this encounter Visit Diagnoses Not on filedocumented in this encounter Care Teams Fruit Or Nut Farmer Relationship Specialty Start Date End Date Lilia Colbert MD PCP - General Internal Medicine 12/29/14 documented as of this encounter
--- OUTSIDE RECORDS SUMMARY | 2024-07-01 12:08 | XMS_ITS | Encounter Summary ---
Author Organization [facility] Address [address] [place] [address] Care Team Providers Care Talent Acquisition Project Manager Name Role Phone Lilia Colbert MD Primary Care Provider Unavaila ble Reason for Referral * EXTERNAL (Routine) - Authorized/Booked Specialty Diagnoses / Procedures Referred By Lisa aquino Referred To Contact Cardiology Procedures REFERRAL TO CARDIOLOGY Lilia Colbert MD [address] [place] [id number] Manoj Valdes [facility] Referral ID Status Reason Start Date Expiration Date V isits Requested Visits Authorized SEE NOTE Authorized/B ooked 12/29/2016 04/02/2017 1 1 Reason for Visit * Reason Onset Date Comments Manager Of Internal Feedback 12/24/2016 Manoj Valdes 18 [id number] Encounter Details Date Type Department Care Team Description 12/24/2016 Telephone Medicine/Pediatrics - [address] [address] Lilia Colbert MD Manager Of Internal Feedback (Manoj Valdes [phone]) Social History Tobacco Use Types Packs/Day Years Used Date Smoking Tobacco: Never Smokeless Tobacco: Never Alcohol Use Standard Drinks/Week Comments No 0 (1 standard drink = 0.6 oz pur e alcohol) Sex Assigned at Date Recorded Not on file documented as of this encounter Miscellaneous Notes * Telephone Encounter - Fatou Hawkins - 12/24/2016 2:59 PM EDT Please review this patients new referral request. The referral has been pended. Please complete thefollowing: If approved> sign order If denied>please give instructions and route to your practice nursing pool. Practice nurse should inform referrals and the patient if denied. * Telephone Encounter - Lindsay Puentes - 12/24/2016 1:26 PM EDT What insurance does the patient have today? Payor: [employer]/HMO FFS / Plan: [address]ANE $20 / ProductType: HMO [id number] Effective 11/30/08: [facility] will not retro referral requests over 90 days. If request is for this please instruct patient to call the 800# on their insurance card to appeal. Do not submit a request. Referrals cannot be processed if the insurance is not accurate. If the insurance listed above in red is NO BILLING INFORMATION FOUND FOR THIS ENCOUTNER The patients correct insurance must be obtained and registered in [facility] or their referral can not be processed. Is this a retro request? NO. If yes for what date of service do you need the retro referral? N/A Who is calling to request this referral? office If the caller is not the patient, what is their name? N/A Ask the patient WHO referred them to this specialty: Patient saw Dr Colbert at [facility] for the problem and was told if symptoms did not resolve or worsen they would refer them to this specialty FIRST and LAST NAME of SPECIALIST PATIENT is seeing: Manoj Valdes [phone] What specialty is this? Cardio DIAGNOSIS Patient is being seen for (Not a body part or a procedure): acdh Have you seen this SPECIALIST for this PROBLEM/DX before?NO If YES, when: Have you checked REVIEW or the APPT DESK to see if this referral has already been done or has visits left? YES Is this visit:Initial Visit Address of Specialist: [address] [place] [address] Phone # of Specialist:[phone] Fax #: (if applicable):[phone] Does patient have an appointment scheduled?: YES Date of appointment- (including a retro-request): [id number] requesting 3 visits Is this appointment related to: Not MVA, WC or Surgery related documented in this encounter Plan of Treatment Not on file documented as of this encounter Visit Diagnoses Not on filedocumented in this encounter Care Teams Talent Acquisition Project Manager Relationship Specialty Start Date End Date Lilia Colbert MD PCP - General Internal Medicine 12/29/14 documented as of this encounter
--- OUTSIDE RECORDS SUMMARY | 2024-07-01 12:08 | XMS_ITS | Encounter Summary ---
Author Organization [facility] Address [address] [place] [address] Care Team Providers Care Cable Reeler Name Role Phone Maverick Gonzales MD Primary Care Provider Unavail able Lilia Colbert MD Primary Care Provider Unavaila ble Encounter Details Date Type Department Care Team Description 04/21/2014 Telephone FRONT OF HOUSE MANAGER - [address] [address] Karma Funez MD Social History Tobacco Use Types Packs/Day Years Used Date Smoking Tobacco: Never Assessed Sex Assigned at Date Recorded Not on file documented as of this encounter Plan of Treatment Not on file documented as of this encounter Visit Diagnoses Not on filedocumented in this encounter Care Teams Cable Reeler Relationship Specialty Start Date End Date Maverick Gonzales MD PCP - General Internal Medicine 04/21/14 12/28/14 Lilia Colbert MD PCP - General Internal Medicine 12/29/14 documented as of this encounter
--- OUTSIDE RECORDS SUMMARY | 2024-07-01 12:08 | XMS_ITS | Encounter Summary ---
Author Organization [facility] Address [address] [place] [address] Care Team Providers Care Driving Instructor Name Role Phone Lilia Colbert MD Primary Care Provider Tom ramirez Encounter Details Date Type Department Care Team Description 02/21/2020 Telephone Adult Medicine [address] [address] Lilia Colbert MD Social History Tobacco Use Types Packs/Day Years Used Date Smoking Tobacco: Never Smokeless Tobacco: Never Alcohol Use Standard Drinks/Week Comments No 0 (1 standard drink = 0.6 oz pur e alcohol) Sex Assigned at Date Recorded Not on file documented as of this encounter Miscellaneous Notes * Telephone Encounter - Renetta Moreira PA-C - 02/22/2020 4:56 PM EST [address] rout to patient services. * Telephone Encounter - Rhiannon Niño R.N. 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 He feels he did have covid but no testing available to prove this Pt enedd the call and stated his charge weigher will be calling * Telephone Encounter - Lorna Arias - 02/22/2020 2:12 PM EST Pt returning call. Please call pt @[phone] ([phone]) * Telephone Encounter - Rhiannon Niño R.N. - 02/22/2020 8:41 AM EST [phone] (home) I left a message for the patient to return my call. Pt stated he was diagnosed on 11/26, able to return to Work on 12/07 testing not done here, was seen Was seen 01/08 No recommendation to stay out of work * Telephone Encounter - Renetta Moreira PA-C - 02/21/2020 9:03 PM EST Patient was seen by myself on 01/08 for fatigue after he had recovered from covid 19. Reported he was diagnosed on 11/26 and had repeat negative testing on 12/27. At that visit I did not advise that patient could not work. I cannot write a return to work note because of this. Additionally we have no record of his tests. I would advise if he needs a note regarding his covid 19 status from months ago he would need to contact the office where he was initially diagnosed * Telephone Encounter - Reji Becerra M.A. - 02/21/2020 3:31 PM EST Patient said the letter need to say he can return back to work. Patient was advise from his job to have covid testing and it came back positive. Please review and advise. documented in this encounter Plan of Treatment Not on file documented as of this encounter Visit Diagnoses Not on filedocumented in this encounter Care Teams Driving Instructor Relationship Specialty Start Date End Date Lilia Colbert MD PCP - General Internal Medicine 12/29/14 documented as of this encounter
--- OUTSIDE RECORDS SUMMARY | 2024-07-01 12:08 | XMS_ITS | Encounter Summary ---
Author Organization [facility] Address [address] [place] [address] Care Team Providers Care Professional Nurse Name Role Phone Maverick Gonzales MD Primary Care Provider Unavail able Lilia Colbert MD Primary Care Provider Unavaila james Encounter Details Date Type Department Care Team Description 06/30/2014 Orders Only Medicine/Pediatrics - [address] [id number] Matt Kiran PA-C Social History Tobacco Use Types Packs/Day Years Used Date Smoking Tobacco: Never Alcohol Use Standard Drinks/Week Comments Not Asked 0 (1 standard drink = 0.6 oz pur e alcohol) Sex Assigned at Date Recorded Not on file documented as of this encounter Plan of Treatment Not on file documented as of this encounter Visit Diagnoses Not on filedocumented in this encounter Care Teams Professional Nurse Relationship Specialty Start Date End Date Maverick Gonzales MD PCP - General Internal Medicine 04/21/14 12/28/14 Lilia Colbert MD PCP - General Internal Medicine 12/29/14 documented as of this encounter
--- OUTSIDE RECORDS SUMMARY | 2024-07-01 12:08 | XMS_ITS | Encounter Summary ---
Author Organization [facility] Address [address] [place] [address] Care Team Providers Care Laundry Operator Wash Room Name Role Phone Lilia Colbert MD Primary Care Provider Tom ramirez Encounter Details Date Type Department Care Team Description 05/28/2015 SCAN Medical Records [address] [place] [id number] Abstract, Provider Social History Tobacco Use Types Packs/Day Years Used Date Smoking Tobacco: Never Alcohol Use Standard Drinks/Week Comments Not Asked 0 (1 standard drink = 0.6 oz pur e alcohol) Sex Assigned at Date Recorded Not on file documented as of this encounter Plan of Treatment Not on file documented as of this encounter Visit Diagnoses Not on filedocumented in this encounter Care Teams Laundry Operator Wash Room Relationship Specialty Start Date End Date Lilia Colbert MD PCP - General Internal Medicine 12/29/14 documented as of this encounter
[2024-07-01 14:44] LABS: Albumin Level 3.1 g/dL (3.5-5.0); Calcium 8.2 mg/dL (8.4-10.2); Total Protein 5.3 g/dL (6.5-8.0)
[2024-07-01 15:05] LABS: Vitamin D 25-OH Total 40.5 ng/mL (>30)
[2024-07-01 15:22] LABS: Parathyroid Hormone Intact 120.7 pg/mL (8.7-77.1)
== END 2024-07-01 11:02 | disposition home or self-care (01) ==
LOC: HO.WFDLDS 11:01
PROVIDERS: Visit Provider Nurse Practitioner Family
DX: E88.09 Other disorders of plasma-protein metabolism, not elsewhere classified (principal); E83.51 Hypocalcemia; R79.89 Other specified abnormal findings of blood chemistry; Z86.39 Personal history of other endocrine, nutritional and metabolic disease
CPT/HCPCS: 36415; 82040; 82306; 82310; 83970; 84155

== ENCOUNTER 2024-07-11 13:14 | Outpatient (AMB) | payer BC, SELFPAY ==
--- NOTE | 2024-07-11 13:21 | A.OFFPC_ITS ---
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 Required: No Allergies amoxicillin Allergy (Severe, Verified 07/11/24 13:55) Unknown sulfamethoxazole [From Bactrim] Allergy (Severe, Verified 07/11/24 13:55) Unknown trimethoprim [From Bactrim] Allergy (Severe, Verified 07/11/24 13:55) Unknown Medication List - Last Reconciled 07/11/24 by Darshan Ryder CNP aspirin 81 mg PO DAILY cholecalciferol (vitamin D3) 25 mcg PO DAILY 90 days enalapril maleate 7.5 mg PO BID Tobacco use date assessed: 07/11/24 Dental Screening Dental Screen Date: 07/11/24 Did you have a dental visit in the last 12 months?: Yes Did you have a dental problem in the last 6 months where you did not have access to dental care?: No Was dental information given to patient?: Patient has dentist HPI HPI Comments History of Present Illness Details 29-year-old male presents for review of recent lab results. He admits to taking his medications as prescribed without adverse reactions. He notes that he has been maintaining adequate nutrition. He offers no complaints and denies acute symptoms at this time. 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 Current occupational exposures/hazards: Yes Cognitive needs: No Hearing needs: No Vision needs: No Questionnaire Thrive Questionnaire Date Thrive assessed: 04/09/24 I am a: Patient What is your living situation today?: I have a steady place to live Within the past 12 months, did the food you bought not last and you didn't have the money to get more?: Never true Within the past 12 months, did you worry whether your food would run out before you got money to buy more?: Never true Do you have trouble paying for medicines?: No Do you have trouble getting transportation to medical appointments?: No Do you have trouble paying your heating and electricity bill?: No Do you have trouble taking care of your child, family member or friend?: No Do you have trouble with day-to-day activities such as bathing, preparing meals, shopping, managing finances, etc.?: No Are you currently unemployed and looking for a job?: No Are you interested in more education?: No Please select the resources that you would like help with: None Currently or been in a relationship where the following occur: No concerns reported THRIVE Score: 0 PING-7 AMB Questionnaire PING-7 Date PING - 7 assessed: 04/12/24 Source: Developed by Drs. Emil Guillen, Aida Spears, Adolph Waldrop and colleagues, with an educational lou from [employer]. Review of Systems Const Details: Const Denies chills, Denies fatigue, Denies fever(s), Denies headache(s) and Denies weakness ENT Denies dizziness and Denies headache(s) Card Denies chest pain, Denies lightheadedness, Denies dyspnea and Denies other (Palpitations) Resp Denies cough, Denies dyspnea, Denies wheezing and Denies other ( shortness of breath) GI Denies abdominal pain, Denies melena, Denies hematochezia, Denies change in bowel habits, Denies dyspepsia and Denies nausea Denies hematuria and Denies dysuria Musc Denies abnormal gait, Denies myalgias, Denies arthralgias, Denies numbness and Denies tingling Skin/Breast Denies rash, Denies unusual bruising and Denies wounds Neuro Denies abnormal gait, Denies dizziness, Denies headache(s), Denies memory loss, Denies numbness, Denies Sensory deficit (Neuro), Denies tingling and Denies weakness Psych Denies anxiety, Denies depression, Denies memory loss Endo Denies cold intolerance, Denies fatigue, Denies heat intolerance, Denies polydipsia and Denies polyuria Aller/Immun Denies wheezing Physical exam (Primary Care) Vital Signs: Last Vital Signs Temp 97.8 F 07/11/24 13:24 Pulse 84 07/11/24 13:24 Resp 16 07/11/24 13:24 BP 121/61 07/11/24 13:24 Pulse Ox 95 07/11/24 13:24 Oxygen Delivery Method Room Air 07/11/24 13:24 BMI result Body Mass Index 25.9 Tobacco/Smoking Status: Tobacco use Status Tobacco use date assessed 07/11/24 07/11/24 13:26 Patient Tobacco Use Status Former Tobacco user 07/11/24 13:21 Tobacco use type Cigarette 07/11/24 13:21 e-Cigarette/Vaping Use Former Use 07/11/24 13:21 Thrive Assessment: Date of Thrive Assessment Date Thrive assessed 04/09/24 07/11/24 13:21 Currently or been in a relationship where the following occur: No concerns reported Const Other: General: no acute distress and well developed Nutritional Appearance: well nourished Orientation/consciousness: patient oriented x3 HENMT Head: Yes normocephalic and Yes atraumatic Eyes General: appearance normal, both eyes and all related structures Pupils: Equal, round and reactive pupils present EOM: EOMs intact bilaterally Resp Effort & Inspection: normal respiratory effort Auscultation: clear to auscultation bilaterally Cardio Rate: regular rate Rhythm: regular rhythm Heart sounds: S1 normal heart sound present, S2 normal heart sound present, no gallops, no murmurs and no rubs GI Palpation (GI): No Abdominal aortic bruit present, Soft to palpation, nontender, No hepatosplenomegaly present and No Rebound tenderness present Auscultation: normal bowel sounds General: Yes no CVA tenderness Back/Spine/Pelvis Back: no CVA tenderness Cervical Spine: cervical ROM normal and No Cervical spine tenderness Thoracic/Lumbar Spine: thoraco-lumbar ROM normal, No pain with thoraco-lumbar ROM, No thoracic spinal tenderness and No lumbar spinal tenderness Extrem General: Yes normal to inspection, No edema and No calf tenderness Skin General: warm and dry. Normal skin color. Normal skin turgor Neuro General: patient oriented x3, gait normal and no focal neuro deficit Cranial nerves: Yes Equal, round and reactive pupils present Cognition (Neuro): normal cognition Gait exam (Neuro): Normal gait present Sensory Exam: No Sensory deficit (Neuro) Psych Appearance: grossly normal Affect: normal affect Attitude: cooperative Thought process: Normal thought process present Coding Level of Care Code Est Pt Level 3 (81536) Diagnoses Hypocalcemia E83.51 Hypoalbuminemia E88.09 Elevated PTHrP level R79.89 History of vitamin D deficiency Z86.39 Assessment & Plan Assessment & Plan (1) Hypocalcemia: Code(s): E83.51 - Hypocalcemia Category: Medical Plan: Recent calcium level is 8.2, previous level was 7.4. Adequate nutrition encouraged. Milk is a good source of calcium. Will check calcium level in 3 months. Verbalized understanding and agreed with the plan. (2) Hypoalbuminemia: Code(s): E88.09 - Other disorders of plasma-protein metabolism, not elsewhere classified Category: Medical Plan: Recent albumin level remains slightly low, 3.1 from 3.2, total protein is slightly low, 5.3 from 4.9. Adequate nutrition including protein encouraged. Will recheck total protein level in 3 months. Verbalized understanding and agreed with the plan. (3) Elevated PTHrP level: Code(s): R79.89 - Other specified abnormal findings of blood chemistry Category: Medical Plan: Recent PTH level is elevated, 120.7 from 119.6. Will recheck this at a different lab given consistent elevated PTH readings with different patient's from [facility] [place]. Likely due to low dietary calcium. May improve if calcium improves. Vitamin-D has been normalized. (4) History of vitamin D deficiency: Code(s): Z86.39 - Personal history of other endocrine, nutritional and metabolic disease Category: Medical Plan: Recent vitamin-D level was normal. Continue to take vitamin-D3 25 mcg daily. Verbalized understanding and agreed with the plan. Orders: Orders Parathyroid Hormone Intact 3 Months R79.89 - Other specified abnormal findings of blood chemistry Total Protein 3 Months E88.09 - Other disorders of plasma-protein metabolism, not elsewhere classified Calcium 3 Months E83.51 - Hypocalcemia
[2024-07-11 13:24] VITALS: BP 121/61; PULSE 84; RESP 16; TEMP 36.6; O2SAT 95; BMI 25.9
== END 2024-07-11 14:16 | disposition home or self-care (01) ==
LOC: HO.HMCFM 13:15
PROVIDERS: PCP Nurse Practitioner Family; Visit Provider Nurse Practitioner Family
DX: E83.51 Hypocalcemia (principal); E88.09 Other disorders of plasma-protein metabolism, not elsewhere classified; R79.89 Other specified abnormal findings of blood chemistry; Z86.39 Personal history of other endocrine, nutritional and metabolic disease

== ENCOUNTER → 2024-07-11 13:14 | Outpatient (BNVA) | payer BC, SELFPAY | PROVIDERS: PCP Nurse Practitioner Family; Visit Provider Nurse Practitioner Family | DX: Z13.89 Encounter for screening for other disorder (principal) ==